=== PATIENT | male | born 1985 | race Two or more races ===

== ENCOUNTER 2023-10-28 21:14 | Emergency (ER) | payer MEDICAID, SELFPAY ==
--- NOTE | ~2023-10-28 | XR_ITS ---
EXAMINATION: XR ANKLE, LEFT CLINICAL INFORMATION: Left ankle pain. COMPARISON: None available. TECHNIQUE: 3 views of the left ankle. FINDINGS: There is lateral fibular plate and screws stabilizing old healed fracture. There is no acute fracture or dislocation seen. The ankle mortise and subtalar joints are normal. The soft tissues are normal. XR/XR ankle LT min 3V IMPRESSION: 1. No acute fracture or dislocation. 2. There is lateral fibular plate and screws stabilizing old healed fracture.
[2023-10-28 21:59] VITALS: BP 135/95; PULSE 83; RESP 14; TEMP 36.4; O2SAT 98; BMI 31.2
[2023-10-28 22:27] LABS: MANUAL DIFF FLAG NO
[2023-10-28 22:29] LABS: Basophils Absolute Auto 0.1 X10*3/uL (0.0-0.2); Basophils Percent Auto 0.7 % (0-2); Eosinophils Absolute Auto 0.1 X10*3/uL (0.0-0.4); Eosinophils Percent Auto 1.4 % (0-4); Hematocrit 44.7 % (42.0-52.0); Hemoglobin 15.8 g/dl (14.0-18.0); Imm Gran Abs Auto 0.01 X10*3/uL (0.00-0.03); Imm Gran Pct Auto 0.1 % (0.0-0.4); Lymphocytes Absolute Auto 3.7 X10*3/uL (1.2-4.9); Lymphocytes Percent Auto 45.2 % (20-40); Mean Corpuscular HGB Conc 35.3 g/dl (31.0-36.0); Mean Corpuscular Hemoglobin 29.9 pg (27.0-33.0); Mean Corpuscular Volume 84.7 fL (80.0-98.0); Mean Platelet Volume 11.2 fL (9.4-12.4); Monocytes Absolute Auto 0.6 X10*3/uL (0.1-1.2); Monocytes Percent Auto 7.6 % (2-11); Neutrophils Absolute Auto 3.7 x10*3/uL (2.0-8.3); Platelet Count 221 X10*3/uL (160-400); Red Blood Count 5.28 X10*6/uL (4.60-5.80); Red Cell Distribution Width 12.8 % (11.0-16.0); White Blood Count 8.1 X10*3/uL (4.8-10.8)
[2023-10-28 22:42] LABS: Alanine Aminotransferase 141 U/L (0-40); Albumin Level 4.6 g/dL (3.5-5.0); Alkaline Phosphatase 61 U/L (39-117); Anion Gap 11 (12-20); Aspartate Amino Transferase 43 U/L (5-37); Bilirubin Total 0.8 mg/dL (0.0-1.0); Blood Urea Nitrogen 15 mg/dL (9-16); Calcium 9.8 mg/dL (8.4-10.2); Carbon Dioxide 27 mmol/L (22-29); Chloride 109 mmol/L (96-108); Creatinine Clr Calc Pharmacy 104.3; Estimated Glomerular Filt Rate > 60; Glucose Random 77 mg/dL (60-115); Potassium 3.6 mmol/L (3.3-5.1); Sodium 143 mmol/L (135-145); Total Protein 7.8 g/dL (6.5-8.0)
[2023-10-29 01:44] VITALS: BP 134/88; PULSE 76; RESP 16; TEMP 36.6; O2SAT 96
--- NOTE | 2023-10-29 03:26 | PC.NURSE ---
approx 0300 this RN, Dr. Aldana and staff development manager in room for primary eval; nad. pt reported MEAD. upon returning to room pt had left prior to administering meds per oct. tried calling pt at cell phone in chart no answer [phone]. Dr. Aldana aware.
--- NOTE | 2023-10-29 03:30 | ED_ITS ---
HPI - Headache General Chief Complaint: Headache Stated Complaint: headache, L ankle (no injury) Time Seen by Provider: 10/29/23 02:35 Source: patient and insurance verification rep Mode of arrival: ambulatory History of Present Illness HPI Narrative: 38-year-old male who presents with 2 months of right-sided headache without blurred or double vision or loss of vision and denies any associated fever, chills and does not currently have a primary care doctor. He denies any associated nausea or vomiting. Patient also has complaints about twisting his left ankle 4 days ago. Related Data Allergies Allergy/AdvReac Type Severity Reaction Status Date / Time No Known Allergies Allergy Verified 10/28/23 21:58 Review of Systems 2 Review of Systems: Pertinent positives and negatives as stated in HPI [facility] Past Medical History Source: nursing notes reviewed Social History Social History Advance Directives: No Advance Directives Information Provided: No Physical Exam 2 Vital Signs: Vital Signs: Last Vital Signs Temp 98 F 10/29/23 01:44 Pulse 76 10/29/23 01:44 Resp 16 10/29/23 01:44 BP 134/88 10/29/23 01:44 Pulse Ox 96 10/29/23 01:44 O2 Del Method Room Air 10/29/23 01:44 BMI result Body Mass Index 31.2 VITAL SIGNS: Reviewed. GENERAL: Well developed, well nourished, in no acute distress. HEAD: Normocephalic/atraumatic EYES: PERRLA, EOMI EARS: Ext canals without abnormality, TMs non-bulging and non-erythematous NOSE: Nares patent bilateral OROPHARYNX: no oral lesions noted, posterior pharynx clear and non-erythematous without noted tonsillar enlargement/erythema/exudates NECK: Supple, no adenopathy LUNGS: Normal breath sounds. No adventitious sounds or accessory muscle use. SpO2<96> CARDIOVASCULAR: Regular rate and rhythm without noted murmurs ABDOMEN: Soft, non-tender, non-distended with bowel sounds. MUSCULOSKELETAL: No tenderness, deformities, or effusions noted on gross inspection. EXTREMITIES: No cyanosis, clubbing or edema. LEFT ANKLE: No obvious swelling/erythema/induration noted SKIN: Inspection of the skin reveals no rashes NEUROLOGIC: Alert and oriented x 4. Strength and sensation to light touch were grossly intact x 4, no facial asymmetry, no pronator drift, cranial nerves 2-12 are grossly intact.. Medications Administered Discontinued Medications Generic Name Dose Route Start Last Admin Trade Name Jorge L PRN Reason Stop Dose Admin Acetaminophen 975 mg 10/29/23 02:46 10/29/23 03:28 Acetaminophen 325 Mg Tablet PO 10/29/23 02:47 Not Given ONCE ONE Acetaminophen/Butalbital/Caffeine 1 tab 10/29/23 03:01 10/29/23 03:28 Butalb/Acetamin/Caff 50/325/40 Tablet PO 10/29/23 03:02 Not Given ONCE ONE Ibuprofen 400 mg 10/29/23 02:46 10/29/23 03:28 Ibuprofen 400 Mg Tablet PO 10/29/23 02:47 Not Given ONCE ONE Magnesium Oxide 400 mg 10/29/23 03:01 10/29/23 03:28 Magnesium Oxide 400 Mg Tablet PO 10/29/23 03:02 Not Given ONCE ONE Medical Decision Making Medical Decision Making [facility] Narrative: 38-year-old male with history and clinical presentation, DDX: Chronic headache, left ankle pain, no clinical suspicion for intracranial infection or eye pathology I reviewed all investigations in hematologic indices are negative for leukocytosis/left shift/anemia/thrombocytopenia. Chemistry indices negative for KEE or electrolyte derangements, there is a noted elevation of transaminases but patient has no abdominal pain and suspect this is likely secondary to fatty liver. Ankle x-ray negative for evidence to suggest fracture or dislocation. All results and findings discussed with patient at bedside and I informed him that we will get him started on a regimen medication available [id number] to help combat his headache and he will receive the 1st dose here in the emergency room. 0320: Was informed by nursing that patient is unable to be located and did not receive any medication. Differential Diagnosis Differential Diagnoses: The differential diagnosis associated with the presentation includes Please see the discussion above Admission/Observation Consideration of admission/observation: Escalation of care including admission/observation considered Please see the discussion above Lab Data [facility] Lab Attestation statement: I reviewed the patient's lab results. Please see the discussion above 10/28/23 22:22 10/28/23 22:22 Labs: Lab Results 10/28/23 Range/Units 22:22 WBC 8.1 (4.8-10.8) X10*3/uL RBC 5.28 (4.60-5.80) X10*6/uL Hgb 15.8 (14.0-18.0) g/dl Hct 44.7 (42.0-52.0) % MCV 84.7 (80.0-98.0) fL MCH 29.9 (27.0-33.0) pg MCHC 35.3 (31.0-36.0) g/dl RDW 12.8 (11.0-16.0) % Plt Count 221 (160-400) X10*3/uL MPV 11.2 (9.4-12.4) fL Immature Gran % (Auto) 0.1 (0.0-0.4) % Neut % (Auto) 45.0 (45-73) % Lymph % (Auto) 45.2 H (20-40) % [place] % (Auto) 7.6 (2-11) % Eos % (Auto) 1.4 (0-4) % Baso % (Auto) 0.7 (0-2) % Lymph # (Auto) 3.7 (1.2-4.9) X10*3/uL [place] # (Auto) 0.6 (0.1-1.2) X10*3/uL Eos # (Auto) 0.1 (0.0-0.4) X10*3/uL Baso # (Auto) 0.1 (0.0-0.2) X10*3/uL Abs Immat Gran (auto) 0.01 (0.00-0.03) X10*3/uL Absolute Neuts (auto) 3.7 (2.0-8.3) x10*3/uL Absolute Nucleated RBC 0.000 (0.0-0.012) X10*3/uL Nucleated RBC % (auto) 0.0 (0.0-0.2) /100WBC Sodium 143 (135-145) mmol/L Potassium 3.6 (3.3-5.1) mmol/L Chloride 109 H (96-108) mmol/L Carbon Dioxide 27 (22-29) mmol/L Anion Gap 11 L (12-20) BUN 15 (9-16) mg/dL Creatinine 1.13 (0.5-1.4) mg/dL Estim Creat Clear Calc 104.3 Estimated GFR > 60 Random Glucose 77 (60-115) mg/dL Calcium 9.8 (8.4-10.2) mg/dL Total Bilirubin 0.8 (0.0-1.0) mg/dL AST 43 H (5-37) U/L ALT 141 H (0-40) U/L Alkaline Phosphatase 61 (39-117) U/L Total Protein 7.8 (6.5-8.0) g/dL Albumin 4.6 (3.5-5.0) g/dL Radiology Impression Discussion of test interpretation with radiology: I have reviewed the radiologist's reading. Radiologist Impression: Please see the discussion above Discharge Plan Discharge Clinical Impression: Headache, Ankle pain Patient Disposition: Elopement Interventions: ED Discharge Assessment Last Done: 10/29/23 03:29 Discharge Date/Time: 10/29/23 03:29
== END 2023-10-29 03:29 | disposition left against medical advice (07) ==
PROVIDERS: Emergency Provider Student in an Organized Health Care Education/Training Program
DX: R51.9 Headache, unspecified (principal); M25.572 Pain in left ankle and joints of left foot; Z79.899 Other long term (current) drug therapy
CPT/HCPCS: 36415; 73610; 80053; 85025; 99283

== ENCOUNTER 2023-11-29 10:16 | Outpatient (REF) | payer MEDICAID, SELFPAY ==
--- NOTE | ~2023-11-29 | XR_ITS ---
EXAMINATION: XR SHOULDER, RIGHT CLINICAL INFORMATION: Right shoulder, acute pain of right anterior shoulder COMPARISON: None available. TECHNIQUE: AP external rotation, Grashey, scapular Y, and axillary views of the right shoulder. FINDINGS: The bones and soft tissues are normal. No fracture. Glenohumeral and acromioclavicular alignment is anatomic with normal joint space. Mild degenerative change of acromioclavicular joint. No abnormal soft tissue calcifications. XR/XR shoulder RT min 2V IMPRESSION: Mild degenerative change of the acromioclavicular joint.
--- NOTE | ~2023-11-29 | XR_ITS ---
EXAMINATION: XR ANKLE, LEFT CLINICAL INFORMATION: Left ankle, history of fracture of tibia, pain COMPARISON: 10/28/2023 TECHNIQUE: AP, lateral, and mortise views of the left ankle. FINDINGS: There is a lateral fibular plate and screws stabilizing old healed fracture. The hardware is intact. No acute fracture or dislocation. The ankle mortise and subtalar joints are normal. The soft tissues are normal. XR/XR ankle LT min 3V IMPRESSION: 1. No acute fracture or dislocation. 2. There is a lateral fibular plate and screws stabilizing old healed fracture.
[2023-11-29 12:38] LABS: Erythrocyte Sedimentation Rate 6 MM/HR (0-15)
[2023-11-29 12:40] LABS: Estimated Average Glucose 103 mg/dL; Hemoglobin A1c % 5.2 % (<6.0)
[2023-11-29 12:45] LABS: Alanine Aminotransferase 118 U/L (0-40); Albumin Level 4.3 g/dL (3.5-5.0); Alkaline Phosphatase 60 U/L (39-117); Anion Gap 13 (12-20); Aspartate Amino Transferase 38 U/L (5-37); Blood Urea Nitrogen 9 mg/dL (9-16); C Reactive Protein < 0.10 mg/dL (< or = 0.50); Calcium 9.3 mg/dL (8.4-10.2); Carbon Dioxide 24 mmol/L (22-29); Chloride 108 mmol/L (96-108); Cholesterol 246 mg/dL (<200); Estimated Glomerular Filt Rate > 60; Glucose Random 96 mg/dL (60-115); HDL Cholesterol 37 mg/dL (>40); LDL Cholesterol Calculated 170 mg/dL (<100); Potassium 3.9 mmol/L (3.3-5.1); Sodium 141 mmol/L (135-145); Total Protein 7.5 g/dL (6.5-8.0); Triglycerides 197 mg/dL (<150)
[2023-11-29 14:13] LABS: CT PCR NOT DETECTED (Not Detect.); NG PCR NOT DETECTED (Not Detect.)
[2023-11-30 04:15] LABS: HIV AB/AG Nonreactive (Nonreactive); HIV Num 1 0.05 S/CO (0.00-0.99); ~HepC Num1 0.08 S/CO (0.00-0.79); ~Hepatitis C Antibody Nonreactive (Nonreactive)
[2023-12-02 11:53] LABS: RPR Rapid Plasma Reagin NON-REACTIVE (NON-REACTIVE)
== END 2023-11-29 10:17 | disposition home or self-care (01) ==
LOC: HO.HHCL 10:16
PROVIDERS: Visit Provider General Practice
DX: Z00.00 Encounter for general adult medical examination without abnormal findings (principal); Z11.4 Encounter for screening for human immunodeficiency virus [HIV]; M25.511 Pain in right shoulder; Z87.81 Personal history of (healed) traumatic fracture
CPT/HCPCS: 0353U; 36415; 73030; 73610; 80053; 80061; 83036; 85652; 86140; 86592; 86803; 87389

== ENCOUNTER 2024-03-10 11:00 | Outpatient (REF) | payer MEDICAID, SELFPAY ==
[2024-03-10 13:25] LABS: Hematocrit 46.6 % (42.0-52.0); Hemoglobin 15.8 g/dl (14.0-18.0); Mean Corpuscular HGB Conc 33.9 g/dl (31.0-36.0); Mean Corpuscular Hemoglobin 29.9 pg (27.0-33.0); Mean Corpuscular Volume 88.3 fL (80.0-98.0); Mean Platelet Volume 11.1 fL (9.4-12.4); Platelet Count 221 X10*3/uL (160-400); Red Blood Count 5.28 X10*6/uL (4.60-5.80); White Blood Count 6.9 X10*3/uL (4.8-10.8)
[2024-03-10 13:31] LABS: Estimated Average Glucose 97 mg/dL
[2024-03-10 13:55] LABS: Alanine Aminotransferase 59 U/L (0-40); Albumin Level 4.4 g/dL (3.5-5.0); Alkaline Phosphatase 52 U/L (39-117); Anion Gap 13 (12-20); Aspartate Amino Transferase 27 U/L (5-37); Bilirubin Direct 0.2 mg/dL (0.0-0.5); Bilirubin Total 0.8 mg/dL (0.0-1.0); Blood Urea Nitrogen 9 mg/dL (9-16); Carbon Dioxide 26 mmol/L (22-29); Chloride 107 mmol/L (96-108); Cholesterol 248 mg/dL (<200); Estimated Glomerular Filt Rate > 60; Free T4 (Free Thyroxine) 1.11 ng/dL (0.71-1.85); Glucose Random 95 mg/dL (60-115); HDL Cholesterol 38 mg/dL (>40); LDL Cholesterol Calculated 158 mg/dL (<100); Sodium 142 mmol/L (135-145); Thyroid Stimulating Hormone 0.54 uIU/mL (0.32-4.0); Total Protein 7.4 g/dL (6.5-8.0); Triglycerides 262 mg/dL (<150); Vitamin D 25-OH Total 41.2 ng/mL (>30)
== END 2024-03-10 11:01 | disposition home or self-care (01) ==
LOC: HO.HHCL 11:00
PROVIDERS: Visit Provider Family Medicine
DX: R79.89 Other specified abnormal findings of blood chemistry (principal)
CPT/HCPCS: 36415; 72100; 73110; 73130; 80048; 80061; 80076; 82306; 83036; 84439; 84443; 85027

== ENCOUNTER 2024-03-10 11:14 | Outpatient (REF) | payer MEDICAID, SELFPAY ==
--- NOTE | ~2024-03-10 | XR_ITS ---
EXAMINATION: XR HAND, BILATERAL XR WRIST, BILATERAL CLINICAL INFORMATION: Bilateral hand and wrist pain COMPARISON: None available. TECHNIQUE: 3 views of both wrist 3 views of both hand FINDINGS: RIGHT: No acute visible fracture or dislocation. Joint spaces and alignment are maintained. Soft tissues are unremarkable. LEFT: No acute visible fracture or dislocation. Plate and screw fixation of the first metacarpal, grossly intact. Joint spaces and alignment are maintained. Radiopaque soft tissue densities in the region of the first webspace. XR/XR hand RT min 3V IMPRESSION: 1. No acute visible fracture or dislocation. 2. Plate and screw fixation of the left first metacarpal, grossly intact. 3. Radiopaque soft tissue densities in the region of the left first webspace.
--- NOTE | ~2024-03-10 | XR_ITS ---
EXAMINATION: XR HAND, BILATERAL XR WRIST, BILATERAL CLINICAL INFORMATION: Bilateral hand and wrist pain COMPARISON: None available. TECHNIQUE: 3 views of both wrist 3 views of both hand FINDINGS: RIGHT: No acute visible fracture or dislocation. Joint spaces and alignment are maintained. Soft tissues are unremarkable. LEFT: No acute visible fracture or dislocation. Plate and screw fixation of the first metacarpal, grossly intact. Joint spaces and alignment are maintained. Radiopaque soft tissue densities in the region of the first webspace. XR/XR hand LT min 3V IMPRESSION: 1. No acute visible fracture or dislocation. 2. Plate and screw fixation of the left first metacarpal, grossly intact. 3. Radiopaque soft tissue densities in the region of the left first webspace.
--- NOTE | ~2024-03-10 | XR_ITS ---
EXAMINATION: XR HAND, BILATERAL XR WRIST, BILATERAL CLINICAL INFORMATION: Bilateral hand and wrist pain COMPARISON: None available. TECHNIQUE: 3 views of both wrist 3 views of both hand FINDINGS: RIGHT: No acute visible fracture or dislocation. Joint spaces and alignment are maintained. Soft tissues are unremarkable. LEFT: No acute visible fracture or dislocation. Plate and screw fixation of the first metacarpal, grossly intact. Joint spaces and alignment are maintained. Radiopaque soft tissue densities in the region of the first webspace. XR/XR wrist RT min 3V IMPRESSION: 1. No acute visible fracture or dislocation. 2. Plate and screw fixation of the left first metacarpal, grossly intact. 3. Radiopaque soft tissue densities in the region of the left first webspace.
--- NOTE | ~2024-03-10 | XR_ITS ---
EXAMINATION: XR HAND, BILATERAL XR WRIST, BILATERAL CLINICAL INFORMATION: Bilateral hand and wrist pain COMPARISON: None available. TECHNIQUE: 3 views of both wrist 3 views of both hand FINDINGS: RIGHT: No acute visible fracture or dislocation. Joint spaces and alignment are maintained. Soft tissues are unremarkable. LEFT: No acute visible fracture or dislocation. Plate and screw fixation of the first metacarpal, grossly intact. Joint spaces and alignment are maintained. Radiopaque soft tissue densities in the region of the first webspace. XR/XR wrist LT min 3V IMPRESSION: 1. No acute visible fracture or dislocation. 2. Plate and screw fixation of the left first metacarpal, grossly intact. 3. Radiopaque soft tissue densities in the region of the left first webspace.
--- NOTE | ~2024-03-10 | XR_ITS ---
EXAMINATION: XR LUMBOSACRAL SPINE CLINICAL INFORMATION: Low back pain worsening COMPARISON: None available. TECHNIQUE: Three views of the lumbosacral spine. FINDINGS: 5 nonrib-bearing lumbar-type vertebral bodies. No acute visible fracture or dislocation. Vertebral maintained. Posterior elements are intact. Paraspinal soft tissues are unremarkable. Visualized bowel gas is unremarkable. XR/XR lumbar spine 2-3V IMPRESSION: No acute visible fracture or dislocation.
== END 2024-03-10 11:15 | disposition home or self-care (01) ==
LOC: HO.HHCX 11:14
PROVIDERS: Visit Provider Family Medicine
DX: M54.50 Low back pain, unspecified (principal); G89.29 Other chronic pain; M25.531 Pain in right wrist; M25.532 Pain in left wrist
CPT/HCPCS: 72100; 73110; 73130

== ENCOUNTER → 2024-03-12 08:43 | Outpatient (REF) | payer MEDICAID, SELFPAY | LOC: HO.SL 08:43 | PROVIDERS: PCP Family Medicine; Visit Provider Family Medicine | DX: G47.33 Obstructive sleep apnea (adult) (pediatric) (principal) | CPT/HCPCS: 95806 ==

== ENCOUNTER → 2024-03-12 19:00 | Outpatient (BNV) | payer MEDICAID, SELFPAY | PROVIDERS: PCP Family Medicine; Visit Provider Internal Medicine | DX: G47.33 Obstructive sleep apnea (adult) (pediatric) (principal) | CPT/HCPCS: 95806 ==

== ENCOUNTER 2024-03-31 09:39 | Outpatient (REF) | payer MEDICAID, SELFPAY ==
--- NOTE | 2024-03-31 | EMG_ITS ---
Bilateral median and ulnar motor and sensory studies were performed. Bilateral radial sensory studies were performed and paraspinal muscles were tested with a needle. Bilateral median and lateral antecubital brachial sensory studies were also performed. IMPRESSION: Mild to moderate bilateral median neuropathy across carpal tunnel. MD ERIK Sinha/JOHANN / [id number]
== END 2024-03-31 09:40 | disposition home or self-care (01) ==
LOC: HO.NEURO 09:39
PROVIDERS: PCP Family Medicine; Visit Provider Family Medicine
DX: M25.531 Pain in right wrist (principal); M25.532 Pain in left wrist; R20.0 Anesthesia of skin; R20.2 Paresthesia of skin
CPT/HCPCS: 95886; 95913

== ENCOUNTER 2024-06-15 09:01 | Outpatient (AMB) | payer MEDICAID, SELFPAY ==
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
[2024-06-15 09:08] VITALS: BMI 29.4
== END 2024-06-15 09:54 | disposition home or self-care (01) ==
PROVIDERS: PCP Family Medicine
DX: G56.03 Carpal tunnel syndrome, bilateral upper limbs (principal); Z97.8 Presence of other specified devices
CPT/HCPCS: 99204

== ENCOUNTER → 2024-06-15 09:01 | Outpatient (BNVA) | payer MEDICAID, SELFPAY | PROVIDERS: PCP Family Medicine | DX: G56.03 Carpal tunnel syndrome, bilateral upper limbs (principal); Z97.8 Presence of other specified devices | CPT/HCPCS: 99212 ==

== ENCOUNTER 2024-08-03 07:55 | Day surgery (SDC) | payer MEDICAID, SELFPAY ==
[2024-08-03 08:21] VITALS: BMI 30.1
[2024-08-03 08:27] VITALS: BP 125/80; PULSE 77; RESP 16; TEMP 36.6; O2SAT 97
--- NOTE | 2024-08-03 10:38 | MHC.SHP ---
Pre-Procedural Eval Section A - 24 Hr Update-Section A only Date of Service: 08/03/24 The patient is an INPATIENT: No Changes since office visit: No Cold of Flu in the past 2 weeks, No New Medical Problems, No Changes in Medication and No Patient answered all questions The patient has been examined within 24 hours of the surgical procedure. The History & Physical has been completed within 30 days and I have reviewed it.: Yes Section B - Complete if H&P > 30 days Chief Complaint: Carpal tunnel syndrome, right upper limb Allergies: Allergies Allergy/AdvReac Type Severity Reaction Status Date / Time No Known Allergies Allergy Verified 06/15/24 09:08 Plan Diagnosis/Plan: Unchanged I have reviewed the history and physical and performed a pertinent physical examination on my patient. No changes have occurred unless specified. Time Spent With Patient Time: Total time managing care of this patient today ____ minutes.
--- NOTE | 2024-08-03 10:39 | W.PM.OPN ---
Operative Note Operative Note Date of Service: 08/03/24 Narrative: Preop diagnosis: 1. Right Carpal tunnel syndrome Postop diagnosis: same Procedure: 1. Right Carpal tunnel release Surgeon: Ivy Parker MD Treatment Plant Operator: None Anesthesia: local block using 1% lidocaine with epinephrine Findings: Thickened transverse carpal ligament. EBL: Less than 5 mL Specimens: None Complications: None Disposition: Brought to recovery room in stable condition Plan: Follow-up for 10-14 days for wound check and suture removal Indications: The patient is 39 years old, with right carpal tunnel syndrome that has been unresponsive to nonoperative management. The risks and benefits of operative treatment including but not limited to risk of damage to blood vessels, nerves, tendons, infection, persistent pain, persistent symptoms, or possible need for additional surgery were discussed with the patient and the patient wishes to proceed with surgery. Procedure: Once consent was obtained a local block was performed using a combination of 1% lidocaine with epinephrine. The patient was then brought back to the operating suite and placed on the operative table in supine position. The right upper extremity was prepped and draped in a standard surgical fashion. Once assured that we had a good block, a 2.0 cm longitudinal incision was made centered over the carpal tunnel. The incision was made through the skin to the subcutaneous tissues using a #15 blade. Dissection was made down to the level of the transverse carpal ligament with care being taken to protect the palmar cutaneous nerve. Once the transverse carpal ligament was clearly visualized, a longitudinal incision was made in the transverse carpal ligament 1st using a #15 blade, then using tenotomy scissors under direct visualization. Care was taken to look for and protect the motor branch of the median nerve when seen in this area. Once satisfied with our carpal tunnel release the wound was copiously irrigated with normal saline and hemostasis was obtained with a brief period of local pressure. The skin edges were reapproximated with some 5.0 nylon suture material and a sterile dressing was applied. The patient appears to have tolerated the procedure well and with no complications. All digits were well vascularized at the conclusion of the case.
[2024-08-03 11:33] VITALS: BP 140/90; PULSE 70; RESP 16; O2SAT 97
--- NOTE | 2024-08-03 11:42 | PC.NURSE ---
PATIENT IS ONLY SUPPOSED TO GET VICODIN HIS PRESCRIPTION PER DR. DONATO. PATIENT AWARE.
== END 2024-08-03 11:48 | disposition home or self-care (01) ==
PROVIDERS: PCP Family Medicine; Visit Provider Orthopaedic Surgery
PROC: (CPT 64721; principal; 2024-08-03 09:40)
DX: G56.01 Carpal tunnel syndrome, right upper limb (principal); Z87.891 Personal history of nicotine dependence
CPT/HCPCS: 64721; J0171; J2003

== ENCOUNTER → 2024-08-03 07:55 | Outpatient (BNV) | payer MEDICAID, SELFPAY | PROVIDERS: PCP Family Medicine; Visit Provider Orthopaedic Surgery | DX: G56.01 Carpal tunnel syndrome, right upper limb (principal) | CPT/HCPCS: 64721 ==

== ENCOUNTER 2024-08-09 19:50 | Outpatient (REF) | payer MEDICAID, SELFPAY ==
--- NOTE | ~2024-08-09 | MR_ITS ---
EXAMINATION: MR SHOULDER WITHOUT CONTRAST RIGHT CLINICAL INFORMATION: Severe lateral pain with weakness. Pain that comes and goes for 4 months, ongoing getting arms, has no strength. Swelling, numbness. COMPARISON: XR right shoulder 11/29/2023. TECHNIQUE: MRI of the shoulder without contrast was performed on a high-field scanner. FINDINGS: ROTATOR CUFF: Mild supraspinatus tendinosis with articular surface fraying/partial tearing measuring up to 1.3 cm in ML dimension. No full-thickness rotator cuff tendon tear. No muscle atrophy or fatty infiltration. BICEPS: Intact. CORACOACROMIAL ARCH: The undersurface of the acromion is curved with no subacromial spur. Moderate acromioclavicular osteoarthritis. Trace fluid within the subacromial-subdeltoid bursa, consistent with minimal bursitis. LABRUM/CAPSULE: Linear fluid signal within the undersurface of the superior and posterosuperior labrum, consistent with nondisplaced undersurface tearing. Paralabral cyst extending into the glenoid notch measuring approximately 1.7 x 2.1 x 1.3 cm. Intact joint capsule. GLENOHUMERAL JOINT/MARROW: Intact articular cartilage. No marrow edema or evidence of acute osseous injury. No significant joint effusion. MR/MR shoulder RT wo con IMPRESSION: 1. Mild supraspinatus tendinosis with articular surface fraying/partial tearing measuring 1.3 cm in ML dimension. No full-thickness rotator cuff tendon tear. 2. Moderate acromioclavicular osteoarthritis. 3. Minimal subacromial-subdeltoid bursitis. 4. Nondisplaced undersurface tear of the superior and posterosuperior labrum with a paralabral cyst extending into the glenoid notch measuring up to 2.1 cm. Electronically signed by: Jaun Choe MD 08/11/2024 10:41 AM MARGARITA
== END 2024-08-09 19:51 | disposition home or self-care (01) ==
LOC: HO.MRI 19:50
PROVIDERS: PCP Family Medicine; Visit Provider Family Medicine
DX: M25.511 Pain in right shoulder (principal); G89.29 Other chronic pain
CPT/HCPCS: 73221

== ENCOUNTER 2024-08-17 08:31 | Outpatient (AMB) | payer MEDICAID, SELFPAY ==
--- NOTE | 2024-08-17 08:54 | A.OFFVIS_ITS ---
Vital Signs 08/17/24 09:01 Height 5 ft 10 in Weight 210 lb BMI 30.1 Handedness Right Intake Visit Reasons: PO-Rt CTR 08/03/24 Intake Note: Rigo is a 39 year old right hand dominant male who presents today post operatively s/p right carpal tunnel release DOS: 08/03/2024. Patient reports when he uses or moves his 3rd, 4th and 5th digits of the right hand he gets pain in the muscles of his palm. He states he is no longer having numbness and tingling. Denies drainage. Wealth Management Consultant Required: Yes Wealth Management Consultant Language: Cosmetics Machine Operator Name: [id number] Allergies No Known Allergies Allergy (Verified 08/17/24 09:00) HPI HPI PO-Rt CTR 08/03/24: Details: Patient is a 39-year-old male who presents for postoperative evaluation status post right carpal tunnel release, DOS 08/03/2024. Today, the patient reports that he is feeling very well, only experiences occasional discomfort in the ulnar part of his hand when he attempts to make a tight closed fist patient shubham es any ongoing numbness or tingling in the right upper extremity. Patient expresses he would like to get signed up for left-sided surgery at this time. No other acute complaints or concerns at this time. PENDING SALE TO [facility] Surgical History (Updated 08/03/24 @ 08:20 by Prisca Amaya RN) Hx of tonsillectomy History of surgery Social History Alcohol intake: former Patient Tobacco Use Status: Former Tobacco user Current occupational status: disabled Current occupation: right hand dominant Review of Systems Const All systems reviewed & are unremarkable except as noted in HPI and below Physical Exam Vital Signs: BMI result Body Mass Index 30.1 Extrem Other: Neuro: Normal sensation of the tips of all digits of bilateral hands in the office today No thenar or intrinsic wasting. Good APB muscle firing and good finger cross. Vascular: Capillary refill brisk. ROM: Patient can make a fist and extend all their digits. Skin: Well approximated and well healing incision site noted on the volar aspect of the patient's right wrist General: No ecchymosis. No erythema or evidence of infection. Results Reviewed Results Reviewed: IMPRESSION: Mild to moderate bilateral median neuropathy across carpal tunnel. Zulema Christopher MD 03/31/2024 Assessment & Plan Assessment & Plan (1) Carpal tunnel syndrome, bilateral: Code(s): G56.03 - Carpal tunnel syndrome, bilateral upper limbs Category: Medical Plan 1. Carpal tunnel syndrome, right, status post carpal tunnel release DOS 08/03/2024 Patient appears to be recovering well postoperatively Patient is educated about the typical recovery course At this time, patient was informed that he will require no further acute follow- up with us for his right carpal tunnel release, as he appears to be recovering very well Patient was amenable to this plan 2. Carpal tunnel syndrome, left Symptoms intermittent, daily, worse at night I educated the patient about the condition. I discussed both operative and nonoperative treatment options. The patient would like to proceed with surgery. The risks and benefits of operative treatment were discussed with the patient and the patient wishes to proceed with surgery. These risks include, but are not limited to, risk of damage to blood vessels, nerves, tendons, infection, recurrence, incomplete relief of preoperative symptoms, persistent pain, possible need for further surgery, and the risks associated with regional blocks and/or anesthesia. Plan is to take the patient to the operating room at some point in the next few weeks for the following procedures: 1. Left carpal tunnel release under local anesthesia All of the preoperative paperwork including the consent was discussed today. All of the patient's questions were answered in the clinic today. The patient understands that they will be in contact with our certified surgical technician to discuss scheduling their procedure. Patient denies diabetes, blood thinners, asthma, heart issues, lung issues, kidney issues, or current smoking. Coding Level of Care Code Est Pt Level 4 (22442) Diagnoses Carpal tunnel syndrome, bilateral G56.03
[2024-08-17 09:01] VITALS: BMI 30.1
== END 2024-08-17 09:23 | disposition home or self-care (01) ==
PROVIDERS: PCP Family Medicine
DX: G56.03 Carpal tunnel syndrome, bilateral upper limbs (principal)
CPT/HCPCS: 99214

== ENCOUNTER → 2024-08-17 08:31 | Outpatient (BNVA) | payer MEDICAID, SELFPAY | PROVIDERS: PCP Family Medicine | DX: G56.03 Carpal tunnel syndrome, bilateral upper limbs (principal) | CPT/HCPCS: 99212 ==

== ENCOUNTER → 2024-08-20 20:30 | Outpatient (REF) | payer MEDICAID, SELFPAY | LOC: HO.SL 20:30 | PROVIDERS: PCP Family Medicine; Visit Provider Family Medicine | DX: Z13.89 Encounter for screening for other disorder (principal) ==

== ENCOUNTER 2024-08-25 08:43 | Outpatient (AMB) | payer MEDICAID, SELFPAY ==
--- NOTE | 2024-08-25 08:47 | MHC.OFFVIS ---
Vital Signs 08/25/24 08:51 Height 5 ft 10 in Weight 210 lb BMI 30.1 Handedness Right Intake Visit Reasons: New Prob - Right Shoulder Pain Intake Note: Rigo is a 39 year old right hand dominant male who presents today for a new problem visit with complaints of right shoulder pain. MRI was done 08/09/24. No hx of injury. Patient reports ongoing pain for more than 6 months. He states that he had this pain before but it was constant like it is now. Pain is more focused on the lateral aspect of the shoulder per patient. Patient has tried and failed Tylenol and Ibuprofen. Rehabilitation Therapist Services: Rehabilitation Therapist Present (Carmelita ([id number])) Allergies No Known Allergies Allergy (Verified 08/25/24 08:50) HPI HPI New Prob - Right Shoulder Pain: Details: Mr. Maynor Morin is a 39-year-old right-hand dominant male who presents to the office today for evaluation of right shoulder pain. He reports that his pain began in November with a gradual onset. He denies any injury or trauma to the shoulder. Over the past 6 months he has noticed that his pain has become more constant. He points to the lateral aspect of the shoulder to indicate his location of pain. He reports that he has had an x-ray as well as an MRI that was done on 08/09/2024. He has tried and failed Tylenol and ibuprofen. 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 External rotation to end range. Negative empty can. Negative drop arm. Pain with cross-body reach. NVI. Office Procedures AMB Joint Injection/Aspiration Joint Injection/Aspiration Primary Site: right shoulder Prep: site was prepped using aseptic technique, ethochloride spray was applied and injection warnings given Injected: 80 mg of, DepoMedrol, with 8 mL of (2% plain lido ) and in the subcromial space Approach Used: posterolateral Procedure: The patient tolerated the procedure well, but had some pain with the injection and there was some relief with the local anesthesia Coding 38420 - Large joint Procedure code (CPT) selection complete Assessment & Plan Assessment & Plan (1) Tendinitis of right rotator cuff: Code(s): M75.81 - Other shoulder lesions, right shoulder Category: Medical (2) Painful arc syndrome of right shoulder: Code(s): M75.101 - Unspecified rotator cuff tear or rupture of right shoulder, not specified as traumatic Category: Medical Plan Mr. Maynor Morin is a 39-year-old right-hand dominant male who presents to the office today for evaluation of right shoulder pain. He reports that his pain began in November with a gradual onset. He denies any injury or trauma to the shoulder. Over the past 6 months he has noticed that his pain has become more constant. He points to the lateral aspect of the shoulder to indicate his location of pain. He reports that he has had an x-ray as well as an MRI that was done on 08/09/2024. He has tried and failed Tylenol and ibuprofen. The patient was offered a?cortisone?injection in the?right shoulder with 80 mg of DepoMedrol. The patient was explained the risks, benefits, and alternatives to receiving this injection. After receiving consent for the injection, the patient had the procedure done while in the office today. The patient tolerated the procedure well with no complications.? I also recommended the patient attend physical therapy. The patient is agreement with this and a physical therapy order has been placed. Patient will follow-up in 6 weeks, sooner if needed. X-rays of the left shoulder obtained on 11/29/2023 are negative for any acute fracture or dislocation. MRI obtained on 08/09/2024: 1. Mild supraspinatus tendinosis with articular surface fraying/partial tearing measuring 1.3 cm in ML dimension. No full-thickness rotator cuff tendon tear. 2. Moderate acromioclavicular osteoarthritis. 3. Minimal subacromial-subdeltoid bursitis. 4. Nondisplaced undersurface tear of the superior and posterosuperior labrum with a paralabral cyst extending into the glenoid notch measuring up to 2.1 cm. Coding Level of Care Code New Pt Level 4 (55189) Diagnoses Tendinitis of right rotator cuff M75.81 Painful arc syndrome of right shoulder M75.101 CPT Codes Coding - 49110 Large joint: 83473 - Large joint ([id number])
[2024-08-25 08:51] VITALS: BMI 30.1
== END 2024-08-25 09:22 | disposition home or self-care (01) ==
PROVIDERS: PCP Family Medicine; Visit Provider Physician Assistant
DX: M75.81 Other shoulder lesions, right shoulder (principal); M75.101 Unspecified rotator cuff tear or rupture of right shoulder, not specified as traumatic
CPT/HCPCS: 20610; 99214

== ENCOUNTER → 2024-08-25 08:43 | Outpatient (BNVA) | payer MEDICAID, SELFPAY | PROVIDERS: PCP Family Medicine; Visit Provider Physician Assistant | DX: M75.81 Other shoulder lesions, right shoulder (principal); M75.101 Unspecified rotator cuff tear or rupture of right shoulder, not specified as traumatic | CPT/HCPCS: 20610; 99212; J1010; J2003 ==

== ENCOUNTER 2024-09-01 07:21 | Outpatient (REF) | payer MEDICAID, SELFPAY ==
--- NOTE | ~2024-09-01 | US_ITS ---
CLINICAL HISTORY: elevated LFTs US abdomen complete Comparison: None Findings: The visualized pancreas is normal. The aorta and inferior vena cava are normal caliber. The liver is normal in size with diffuse increase of echogenicity. There is no intrahepatic bile duct dilatation. The common duct is 3.0 mm in diameter. There are multiple small non mobile echogenicity of the gallbladder with the largest 1 measuring 3 mm. The main portal vein is antegrade. The right kidney is 11 cm in length. The left kidney is 11 cm in length. The spleen is normal. No ascites. IMPRESSION: Diffuse increase of echogenicity of the liver favored to represent hepatic steatosis. Possible multiple polyps of the gallbladder. This document has been electronically signed by: Sandhya Perez MD on 09/02/2024 14:52:50
== END 2024-09-01 07:22 | disposition home or self-care (01) ==
LOC: HO.US 07:21
PROVIDERS: PCP Family Medicine; Visit Provider Family Medicine
DX: R79.89 Other specified abnormal findings of blood chemistry (principal)
CPT/HCPCS: 76700

== ENCOUNTER → 2024-09-01 07:23 | Outpatient (BNV) | payer MEDICAID, SELFPAY | PROVIDERS: PCP Family Medicine; Visit Provider Nuclear Medicine | DX: R79.89 Other specified abnormal findings of blood chemistry (principal) | CPT/HCPCS: 76700 ==

== ENCOUNTER 2024-09-09 08:55 | Outpatient (RCR) | payer MEDICAID, SELFPAY | END 2024-10-14 11:27 | disposition home or self-care (01) | LOC: HO.PT 08:55 | PROVIDERS: PCP Family Medicine; Visit Provider Physician Assistant | DX: M75.81 Other shoulder lesions, right shoulder (principal); M75.101 Unspecified rotator cuff tear or rupture of right shoulder, not specified as traumatic | CPT/HCPCS: 97110; 97161 ==

== ENCOUNTER 2024-09-16 10:11 | Outpatient (REF) | payer MEDICAID, SELFPAY ==
--- NOTE | ~2024-09-16 | XR_ITS ---
EXAMINATION: XR CERVICAL SPINE CLINICAL INFORMATION: neck pain COMPARISON: None available. TECHNIQUE: 5 views of the cervical spine, inclusive of flexion and extension views, were obtained. FINDINGS: There is normal cervical lordosis. The vertebral heights and alignment is normal. Mild loss of C7-T1 disc height. Rest the disc heights are normal. The neural foramina are mildly narrowed bilaterally at C5-6 and on the left at C4-5 disc level from uncovertebral hypertrophic changes. No visible acute fracture, dislocation or lytic process seen. The paravertebral soft tissues are normal. XR/XR cervical spine 4V IMPRESSION: No acute fracture or dislocation. Mild bilateral narrowing of C5-6 and left C4-5 neural foramina from uncovertebral hypertrophic changes. Mild degenerative disc changes C7-T1 disc level. Electronically signed by: Clyde Franco MD 09/16/2024 11:00 AM MARGARITA
--- OUTSIDE RECORDS SUMMARY | 2024-09-16 12:10 | XMS_ITS | Clinical Summary ---
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 LDL: 130-159 mg/dLHigh LDL: 160-189 mg/dLVery High LDL: greater than or equal to 190 mg/dL HDL Cholesterol 38(L) >40 mg/dL [facility] Comment:Desirable HDL: great er than 40 mg/dL Note: This HDL assay may give artificially low results in patients with liver disease. Blood Venous blood specimen / Unknown 03/10/2024 11:03 AM EDT 03/10/2024 1:04 PM EDT us Malina Nevarez DO LAB BLOOD ORDERABLES Final R esult Performing Organization Address [facility] Co de Phone Number [facility] [address] [place] [phone] * Hepatitis C Antibody with Reflex to HCV, RNA, Quantitative, Real-Time PCR (11/29/2023 10:27 AM EDT) Hepatitis C Antibody Nonreactive Nonreactive [facility] Comment:Antibodies to HCV no t detected; does not exclude early acuteHCV infection. Blood Venous blood specimen / Unknown 11/29/2023 10:27 AM EDT 11/29/2023 11:55 AM EDT us Leelee Francisco MD LAB BLOOD ORDERABLES Final Res ult Performing Organization Address [facility] de Phone Number [facility] [address] [place] [phone] * HIV-1/2 Antigen and Antibodies, Fourth Generation, with Reflexes (11/29/2023 10:27 AM EDT) HIV AB/AG Nonreactive Nonreactive [facility] Comment:HIV-1 p24 Ag and/or HIV-1/HIV-2 Ab not detected.A test result that is nonreactive does not exclude thepossibility of exposure to or infection with HIV-1 and/orHIV-2. Nonreactive results in this assay for individualswith prior exposure to HIV-1 and/or HIV-2 may be due toantigen and antibody levels that are below the limit ofdetection of this assay.The [employer] HIV Ag/Ab Combo assay result andsupplemental assay results should be interpreted inconjunction with the patient's clinical presentation,history and other laboratory results. If the results areinconsistent with clinical evidence, additional testing issuggested to confirm the result. Blood Venous blood specimen / Unknown 11/29/2023 10:27 AM EDT 11/29/2023 11:55 AM EDT us Leelee Francisco MD LAB BLOOD ORDERABLES Final Res ult [facility] [address] [place] [phone] from Last 3 Months or Most Recently Relevant to Health Maintenance Insurance [facility] C3 HSN FULL Care Teams Planishing Hammer Operator Relationship Specialty Start Date End Date Malina Nevarez DO [address] [place] [phone] PCP - General Family Medicine 02/17/24
--- OUTSIDE RECORDS SUMMARY | 2024-09-16 12:10 | XMS_ITS | Encounter Summary ---
Author Organization [employer] Address [address] [facility] 7t [place] [address] Care Team Providers Care Clip On Sunglasses Inspector Name Role Phone Malina Nevarez DO Primary Care Provider + [phone] Leelee Francisco MD Primary Care Provider [phone] Malina Nevarez DO Primary Care Provider + [phone] Reason for Visit * Reason Onset Date Comments New Patient 04/18/2023 Encounter Details Date Type Department Care Team (Late st Contact Info) Description 04/18/2023 Telephone [facility] [address] [place], [place] [phone] Bobby Ortega MD [address] [place], [place] [phone] New Patient Social History Tobacco Use Types Packs/Day Years Used Date Smoking Tobacco: Never Assessed Sex and Gender Information Value Date Recorded Sex Assigned at Male 04/18/2023 5:00 PM EDT Legal Sex Male 4:59 PM EDT Gender Identity Male 04/18/2023 5:00 PM EDT Sexual Orientation Don't know 04/18/2023 5: 00 PM EDT documented as of this encounter Miscellaneous Notes * Telephone Encounter - Yarely Alcaraz - 04/18/2023 5:03 PM EDT Pt has been transfer over to wait list for RESIDENCE DIRECTOR. EFFECTIVE SINCE 02/15/2023 documented in this encounter Plan of Treatment Not on file documented as of this encounter Visit Diagnoses Not on filedocumented in this encounter Care Teams Clip On Sunglasses Inspector Relationship Specialty Start Date End Date Malina Nevarez DO [address] [place] [address] PCP - General Family Medicine 06/05/23 07/28/23 Leelee Francisco MD [address] [place] [address] PCP - General Family Medicine 11/29/23 02/16/24 Malina Nevarez DO [address] [place] [address] PCP - General Family Medicine 02/17/24 documented as of this encounter
--- OUTSIDE RECORDS SUMMARY | 2024-09-16 12:10 | XMS_ITS | Encounter Summary ---
Author Organization [facility] [employer] Address [address] [facility] [address] [place] [address] Care Team Providers Care Provider Service Representative Name Role Phone DeidraMalina ayon Primary Care Provider Encounter Details Date Type Department Care Team (Latest Contact Info) Description 09/16/2024 Travel Social History Tobacco Use Types Packs/Day Years Used Date Smoking Tobacco: Former Cigarettes Passive Smoke Exposure: Past Smokeless Tobacco: Never Depression Answer Date Recorded Patient Health Questionnaire-9 Score 18 08/05/2024 Patient Health Questionnaire-9 Score 18 08/05/2024 Last PHQ-9: Questionnaire Data Not on file 1 10/06/2023 Housing Stability Answer Date Recorded What is your housing situation today? I have andrez ginette 11/29/[address] you li [...] PM EDT documented as of this encounter Plan of Treatment Not on file documented as of this encounter Visit Diagnoses Not on filedocumented in this encounter Additional Health Concerns Assessment Noted Time PHQ-9 Depression Total Score: 18 08/05/ 024 10:07 AM EST documented as of this encounter Care Teams Provider Service Representative Relationship Specialty Start Date End Date Malina Nevarez DO [address] [place] [phone] PCP - General Family Medicine 02/17/24 documented as of this encounter
--- OUTSIDE RECORDS SUMMARY | 2024-09-16 12:10 | XMS_ITS | Encounter Summary ---
Author Organization [employer] Address [address] [facility] [address] [place] [address] Care Team Providers Care Skin Care Specialist Name Role Phone GeriMalina Primary Care Provider [phone] Reason for Visit * Reason Onset Date Comments Results 08/21/2024 Encounter Details Date Type Department Care Team ([facility] st Contact Info) Description 08/21/2024 Telephone [facility] [address] [place], [place] [phone] Frances Cha, RN [address] [place], [place] [phone] Results Social History Tobacco Use Types Packs/Day Years Used Date Smoking Tobacco: Never Smokeless Tobacco: Never Depression Answer Date Recorded [...] encounter Miscellaneous Notes * Telephone Encounter - Frances Cha RN - 08/21/2024 12:48 PM EST PCP reviewed shoulder MRI which returned showing Mild supraspinatus tendinosis with articular surface fraying/partial tearing measuring 1.3 cm in ML dimension and a Nondisplaced undersurface tear of the superior andposterosuperior labrum with a paralabral cyst extending into the glenoid notch measuring up to 2.1 cm . Patient reported to PCP he has an upcoming ortho appointment and ortho provider requested the MRI to be ordered. Patient should f/u with ortho. TC placed to patient [phone] to discuss above message. Patient did not answer, RN left requesting CB to red team nurses. TC placed to patient [phone] via [employer] ([employer] #[id number]) in regards to above message. Patient verbalized understanding and reports he has an ortho appointment on 08/25/24 at 9am at [facility] ([facility] Patient reports he will obtain the MRI CD and results from [facility] prior to ortho appointment. Patient did not have any further questions. Patient to f/u PRN. documented in this encounter Plan of Treatment Not on file documented as of this encounter Visit Diagnoses Not on filedocumented in this encounter Additional Health Concerns Assessment Noted Time PHQ-9 Depression Total Score: 18 024 10:07 AM EST documented as of this encounter Care Teams Skin Care Specialist Relationship Specialty Start Date End Date Malina Nevarez DO [address] [place] [phone] PCP - General Family Medicine 02/17/24 documented as of this encounter
--- OUTSIDE RECORDS SUMMARY | 2024-09-16 12:10 | XMS_ITS | Encounter Summary ---
Author Organization [employer] Address [address] [facility] [facility] [address] 7[address] [place] [address] Care Team Providers Care Validation Scientist Name Role Phone DeidraMalina ayon Primary Care Provider [phone] Reason for Visit * Reason Comments Neck Pain Encounter Details Date Type Department Care Team (Late st Contact Info) Description 09/16/2024 9:15 AM EST Office Visit [facility] [address] [place], [place] [phone] Ayesha Aleman MD [address] [place], [place] [phone] Cervical paraspinal muscle spasm (Primary Dx) Social History Tobacco Use Types Packs/Day Years [...] PM EDT documented as of this encounter Last Filed Vital Signs Vital Sign Reading Time Taken Comments Blood Pressure 130/70 09/16/2024 9:01 AM EST Pulse 72 09/16/2024 9:01 AM EST Temperature 36.6 ??C (97.9 ??F) 09/16/2024 9:01 AM ES T Respiratory Rate 17 09/16/2024 9:01 AM EST Oxygen Saturation - - Inhaled Oxygen Concentration - - Weight 94.4 kg (208 lb 2 oz) 09/16/2024 9:01 AM EST Height 177.8 cm (5' 10 ) 09/16/2024 9:01 AM EST Body Mass Index 29.86 09/16/2024 9:01 AM EST documented in this encounter Miscellaneous Notes * Patient Education Note - Ayesha Aleman MD - 09/16/2024 2:21 PM EST Images from the original note were not included. Patient Education Table of Contents Rehabilitaci?n de distensi?n y esguince cervical (Cervical Strain and Sprain Rehab) To view videos and all your education online visit, [email or web address] or scan this QR code with your smartphone. Access to this content will in one year. Rehabilitaci?n de distensi?n y esguince cervical Cervical Strain and Sprain Rehab Pregunte al m?dico qu?? ejercicios son seguros para usted. Indu los ejercicios exactamente augustina se lo haya indicado el m?dico y grad?elos auugstina se lo hayan indicado. Es normal sentir un leve estiramiento, tironeo, opresi?n o malestar al hacer estos ejercicios. Det?ngase de inmediato si siente un dolor repentino o el dolor empeora. No comience a hacer estos ejercicios hasta que se lo indique el m?dico. Ejercicios de elongaci?n y amplitud de movimiento Inclinaci?n cervical hacia un lado 1. Si?ntese en rohini silla estable o p?ngase de pie y mantenga rohini buena postura. Sin float remover los hombros, incline lentamente el lado liane/derecho de la neyda y lleve la oreja hacia el hombro hasta sentir un estiramiento en los m?sculos del lolis en el lado opuesto. Mantenga la mirada al frente. Mantenga esta posici?n meghan segundos. Repita el ejercicio con el otro lado del lolis. Repita veces. Realice jaimie ejercicio veces al d?a. Rotaci?n cervical 1. Si?ntese en rohini silla estable o p?ngase de pie y mantenga rohini buena postura. Lentamente, gire la neyda hacia un lado, augustina si quisiera mirar por encima del hombro liane/derecho. Mantenga la mirada paralela al suelo. Det?ngase cuando sienta un estiramiento en el costado y en la parte de atr?s del lolis. Mantenga esta posici?n meghan segundos. Para repetir el ejercicio, gire hacia el otro lado. Repita veces. Realice jaimie ejercicio veces al d?a. Extensi?n tor?cica y estiramiento pectoral 1. Use rohini toalla o rohini manta louise?a para armar un rollo de 4?pulgadas (10?cm) de di?metro. Acu?stese boca arriba sobre rohini superficie firme. Coloque la toalla en la parte media de la espalda, de manera transversal a la columna vertebral. Nodebe estar debajo de los om?platos. Coloque las apolonia detr?s de la neyda y deje caer los codos hacia los lados. Mantenga esta posici?n meghan segundos. Repita veces. Realice jaimie ejercicio veces al d?a. Ejercicios de fortalecimiento Flexi?n cervical superior 1. Acu?stese boca arriba con rohini almohada neptali detr?s de la neyda o rohini toalla louise?a enrollada debajo del lolis. Suavemente, hunda el ment?n en el pecho y lleve la neyda hacia abajo para mirar en direcci?n a lospies. No levante la neyda de la almohada. Mantenga esta posici?n meghan segundos. Afloje lentamente la tensi?n. Relaje los m?sculos por completo antes de repetir el ejercicio. Repita veces. Realice jaimie ejercicio veces al d?a. Extensi?n cervical 1. P?rese de espaldas a rohini pared, a rohini distancia aproximada de 6?pulgadas (15?cm) de la pared. Coloque un objeto blando, de unas 6 a 8?pulgadas (15 a 20?cm) de di?metro, entre la nuca y la pared. Puede ser rohini almohada louise?a, rohini pelota o rohiin toalla doblada. Incline suavemente la neyda hacia atr?s y ejerza presi?n sobre el objeto blando. Mantenga relajadas la carole?bula y la frente. Mantenga esta posici?n meghan segundos. Afloje lentamente la tensi?n. Relaje los m?sculos por completo antes de repetir el ejercicio. Repita veces. Realice jaimie ejercicio veces al d?a. Postura y mec?kristopher corporal La mec?kristopher corporal se refiere a los movimientos y a las posiciones del cuerpo mientras realiza las actividades diarias. La postura es rohini parte de la mec?kristopher corporal. La buena postura y la mec?kristopher corporal saludable pueden ayudar a aliviar el estr?s en las articulaciones y los tejidos del cuerpo. La buena postura significa que la columna mantiene lawton posici?n natural de curvatura en forma de S (la columna est?? en rohini posici?n neutral), los hombros van un poco hacia atr?s y la neyda no se inclina hacia adelante. A continuaci?n, se incluyen pautas generales para mejorar la postura y la mec?kristopher corporal en las actividades diarias. Sentado Cuando est?? sentado, mantenga la columna en posici?n neutral y deje los pies apoyados en el suelo.Use un apoyapi?s, si es necesario, y mantenga los muslos paralelos al suelo. Evite redondear los hombros. Evite inclinar la neyda hacia adelante. Cuando trabaje en un escritorio o con rohini computadora, el escritorio debe estar a rohini altura en la que las apolonia est?n un poco m?s abajo que los codos. Deslice la silla debajo del escritorio, de modode estar lo suficientemente cerca augustina para mantener rohini buena postura. Cuando trabaje con rohini computadora, coloque el monitor a rohini altura que le permita mirar derecho hacia adelante, sin tener que inclinar la neyda hacia adelante o hacia atr?s. De pie Cuando est?? de pie, mantenga la columna en posici?n neutral y los pies separados aproximadamente al ancho de caderas. Mantenga las rodillas ligeramente flexionadas. Las orejas, los hombros y las caderas deben estar alineados. Cuando realice rohini tarea en la que deba estar de pie en el mismo sitio meghan mucho tiempo, coloque un pie en un objeto estable de 2 a 4?pulgadas (5?a 10?cm) de alto, augustina un taburete. Raysal ayuda a que la columna mantenga rohini posici?n neutral. Reposo Al descansar o estar acostado, evite las posiciones que le causen m?s dolor. Intente sostener el lolis en rohini posici?n neutral. Puede usar rohini almohada arthur?brandon o rohini toalla louise?a enrollada. La almohada debe sostenerle el lolis, [place] no empujarlo. Esta informaci?n no tiene augustina fin reemplazar el consejo del m?dico. Aseg?rese de hacerle al m?dicocualquier pregunta que tenga. Document Released: 2007-05-22 Document Updated: 2023-03-22 Document Reviewed: 2023-03-22 Elsevier Patient Education ? 2023 [employer] * Assessment & Plan Note - Ayesha Aleman MD - 09/16/2024 9:32 AM EST Associated Problem(s): Cervical paraspinal muscle spasm Advised re applying heat to affected area, use diclofenac gel and do some stretching exercises. Rx Meloxicam daily x 5 d then prn + Tylenol prn breakthrough pain Use flexeril at bedtime x 1w Toradol 30mg IM today. FU w PCP if sxs are not improved, may need PT documented in this encounter Plan of Treatment Not on file documented as of this encounter Procedures Procedure Name Priority Date/Time Associated Diagnosis Comments XR CERVICAL SPINE 4V Routine 09/16/2024 10:12 AM EST Cervical paraspinal muscle spasm documented in this encounter Results * XR CERVICAL SPINE 4V (09/16/2024 10:12 AM EST) Anatomical Region Laterality Modality Abdomen Radiographic Merry ging 09/16/2024 10:1 2 AM EST Narrative 09/16/2024 11:02 AM EST ?[facility] ?[address] ?[place] [address] ?XRay Report ? Signed ? Patient: Rigo Hamm ?MR#: [id number] ?? [id number] ? : 1985 ?Acct:[id number] ? Age/Sex: 39 / M ?ADM Date: 01/29/25 ? Loc: HO.HHCX ? Attending Dr: Ayesha Aleman MD ? Ordering Physician: Ayesha Aleman MD ?? Date of Service: 09/16/24 ?? Procedure(s): XR cervical spine 4V ?? Accession Number(s): [id number] ? cc: Ayesha Aleman MD ? EXAMINATION: [...] disc level. ? Electronically signed by: ??Clyde Franco MD ??09/16/2024 11:00 AM EST RP ? Dictated By: ?Clyde Franco MD ? Signed By: ?<Electronically signed by Clyde Franco MD in OV> ?09/16/24 1100 ? DD/ 1012 ? TD/TT: 09/16/24 1040 ? Senior Quality Assurance Specialist: MSM ? Procedure Note [place], Image - 09/16/[address] [address] XRay Report Signed Patient: Rigo HammMR#: [id number] : 1985Acct:[id number] Age/Sex: 39 / MADM Date: 09/16/24 Loc: HO.HHCX Attending Dr: Ayesha Aleman MD Ordering Physician: Ayesha Aleman MD Date of Service: 09/16/24 Procedure(s): XR cervical spine 4V Accession Number(s): [id number] cc: Ayesha Aleman MD EXAMINATION: XR CERVICAL [...] Clyde Franco MD 09/16/2024 11:00 AM EST RP Dictated By: Clyde Franco MD Signed By: <Electronically signed by Clyde Franco MD in OV> 09/16/24 1100 DD/ 1012 TD/TT: 09/16/24 1040 Senior Quality Assurance Specialist: MATTEO Ayesha Aleman MD IMG XR PROCEDURES Edited Result - Final documented in this encounter Visit Diagnoses Diagnosis Cervical paraspinal muscle spasm- Primary Spasm of muscle documented in this encounter Administered Medications Inactive Administered Medications - up to 3 most recent administrations Medication Order MAR Action Action Date Dose Rate Site ketorolac (Toradol) injection 30 mg 30 mg, Intramuscular, Once, On Sat09/16/24 at 0930, For 1 doseIndications:Cervical paraspinal muscle spasm Given 09/16/2024 9:30 AM EST 30 mg Left Deltoid documented in this encounter Additional Health Concerns Assessment Noted Time PHQ-9 Depression Total Score: 18 1218/2 024 10:07 AM EST documented as of this encounter Care Teams Validation Scientist Relationship Specialty Start Date End Date Malina Nevarez DO [address] [place] [address] PCP - General Family Medicine 02/17/24 documented as of this encounter
--- OUTSIDE RECORDS SUMMARY | 2024-09-16 12:10 | XMS_ITS | Encounter Summary ---
Author Organization [employer] Address [address] [address] 7t [place] [address] Care Team Providers Care Material Control Specialist Name Role Phone Malina Nevarez DO Primary Care Provider Reason for Visit * Reason Comments Med Refill Encounter Details Date Type Department Care Team ([facility] st Contact Info) Description 09/03/2024 Refill [facility] [address] [place], [place] [phone] Malina Nevarez DO [address] [place], [place] [phone] Social History Tobacco Use Types Packs/Day Years [...] documented as of this encounter Care Teams Material Control Specialist Relationship Specialty Start Date End Date Malina Nevarez DO [address] [place] [address] PCP - General Family Medicine 02/17/24 documented as of this encounter
== END 2024-09-16 10:12 | disposition home or self-care (01) ==
LOC: HO.HHCX 10:11
PROVIDERS: Visit Provider Internal Medicine
DX: M62.838 Other muscle spasm (principal)
CPT/HCPCS: 72050

== ENCOUNTER → 2024-09-16 10:12 | Outpatient (BNV) | payer MEDICAID, SELFPAY | PROVIDERS: Visit Provider Radiology Diagnostic Radiology | DX: M54.2 Cervicalgia (principal) | CPT/HCPCS: 72050 ==

== ENCOUNTER 2024-10-27 09:41 | Day surgery (SDC) | payer MEDICAID, SELFPAY ==
[2024-10-27 10:13] VITALS: BP 121/74; PULSE 81; RESP 15; TEMP 36.8; O2SAT 96; BMI 29.5
--- NOTE | 2024-10-27 10:24 | MHC.SHP ---
Pre-Procedural Eval Section A - 24 Hr Update-Section A only Date of Service: 10/27/24 The patient is an INPATIENT: No Changes since office visit: No Cold of Flu in the past 2 weeks, No New Medical Problems, No Changes in Medication and No Patient answered all questions The patient has been examined within 24 hours of the surgical procedure. The History & Physical has been completed within 30 days and I have reviewed it.: Yes Section B - Complete if H&P > 30 days Chief Complaint: Carpal tunnel syndrome, left upper limb Allergies: Allergies Allergy/AdvReac Type Severity Reaction Status Date / Time No Known Allergies Allergy Verified 10/27/24 10:15 Plan Diagnosis/Plan: Unchanged I have reviewed the history and physical and performed a pertinent physical examination on my patient. No changes have occurred unless specified. Time Spent With Patient Time: Total time managing care of this patient today ____ minutes.
--- NOTE | 2024-10-27 10:25 | P.OP_ITS ---
Operative Note Operative Note Date of Service: 10/27/24 Narrative: Preop diagnosis: 1. Left Carpal tunnel syndrome Postop diagnosis: same Procedure: 1. Left Carpal tunnel release Surgeon: Ivy Parker MD Project Development Director: Kaden QUINN Anesthesia: local block using 1% lidocaine with epinephrine Findings: Thickened transverse carpal ligament. EBL: Less than 5 mL Specimens: None Complications: None Disposition: Brought to recovery room in stable condition Plan: Follow-up for 10-14 days for wound check and suture removal Indications: The patient is a 39 years old, with left carpal tunnel syndrome that has been unresponsive to nonoperative management. The risks and benefits of operative treatment including but not limited to risk of damage to blood vessels, nerves, tendons, infection, persistent pain, persistent symptoms, or possible need for additional surgery were discussed with the patient and the patient wishes to proceed with surgery. Procedure: Once consent was obtained a local block was performed using a combination of 1% lidocaine with epinephrine. The patient was then brought back to the operating suite and placed on the operative table in supine position. The left upper extremity was prepped and draped in a standard surgical fashion. Once assured that we had a good block, a 2.0 cm longitudinal incision was made centered over the carpal tunnel. The incision was made through the skin to the subcutaneous tissues using a #15 blade. Dissection was made down to the level of the transverse carpal ligament with care being taken to protect the palmar cutaneous nerve. Once the transverse carpal ligament was clearly visualized, a longitudinal incision was made in the transverse carpal ligament 1st using a #15 blade, then using tenotomy scissors under direct visualization. Care was taken to look for and protect the motor branch of the median nerve when seen in this area. Once satisfied with our carpal tunnel release the wound was copiously irrigated with normal saline and hemostasis was obtained with a brief period of local pressure. The skin edges were reapproximated with some 5.0 nylon suture material and a sterile dressing was applied. The patient appears to have tolerated the procedure well and with no complications. All digits were well vascularized at the conclusion of the case.
[2024-10-27 11:45] VITALS: BP 133/83; PULSE 70; RESP 22; TEMP 36.4; O2SAT 97
== END 2024-10-27 11:46 | disposition home or self-care (01) ==
PROVIDERS: PCP Family Medicine; Visit Provider Orthopaedic Surgery
PROC: (CPT 64721; principal; 2024-10-27 12:30)
DX: G56.02 Carpal tunnel syndrome, left upper limb (principal); Z98.890 Other specified postprocedural states; Z87.891 Personal history of nicotine dependence
CPT/HCPCS: 64721; J0171; J2003

== ENCOUNTER → 2024-10-27 09:41 | Outpatient (BNV) | payer MEDICAID, SELFPAY | PROVIDERS: PCP Family Medicine; Visit Provider Orthopaedic Surgery | DX: G56.02 Carpal tunnel syndrome, left upper limb (principal) | CPT/HCPCS: 64721 ==

== ENCOUNTER 2024-11-10 12:32 | Outpatient (AMB) | payer MEDICAID, SELFPAY ==
--- NOTE | 2024-11-10 12:50 | MHC.OFFVIS ---
Vital Signs 11/10/24 12:56 Height 5 ft 10 in Weight 205 lb BMI 29.4 Handedness Right Intake Visit Reasons: PO-Lt CTR 10/27/24 Intake Note: Rigo is a 39 year old right hand dominant male who presents today post operatively s/p left carpal tunnel release DOS: 10/27/24 w/ Dr Ivy Parker. Patient denies any pain, numbness or tingling. Denies discharge from incison site. Sutures removed and steri strips applied. Allergies No Known Allergies Allergy (Verified 11/10/24 12:56) HPI HPI PO-Lt CTR 10/27/24: Details: Rigo is a 39 year old right hand dominant male who presents today post operatively s/p left carpal tunnel release DOS: 10/27/24 w/ Dr Ivy Parker. Patient denies any pain, numbness or tingling. Denies discharge from incison site. Sutures removed and steri strips applied. 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 Good APB muscle firing and good finger cross. Vascular: Capillary refill brisk. ROM: Patient can make a fist and extend all their digits. Skin: Well approximated and well healing incision site noted on the volar aspect of the patient's right left General: No ecchymosis. No erythema or evidence of infection. Assessment & Plan Assessment & Plan (1) Carpal tunnel syndrome, bilateral: Code(s): G56.03 - Carpal tunnel syndrome, bilateral upper limbs Category: Medical Plan 1. Carpal tunnel syndrome, left, status post carpal tunnel release DOS 10/27/2024 Patient appears to be recovering well postoperatively Patient is educated about the typical recovery course At this time, patient was informed that he will require no further acute follow-up with us for his right carpal tunnel release, as he appears to be recovering very well Patient was amenable to this plan Coding Level of Care Code Global (47712) Diagnoses Carpal tunnel syndrome, bilateral G56.03
[2024-11-10 12:56] VITALS: BMI 29.4
--- OUTSIDE RECORDS SUMMARY | 2024-11-10 15:14 | XMS_ITS | Encounter Summary ---
Author Organization [employer] Address [address] [place] [address] Care Team Providers Care Elementary Supervisor Name Role Phone Malina Nevarez DO Primary Care Provider [phone] Reason for Visit * Reason Onset Date Comments Appointment Request 10/29/2024 Encounter Details Date Type Department Care Team ([facility] st Contact Info) Description 10/29/2024 Telephone [facility] [address] [place] [address] Malina Nevarez DO [address] [place], [place] [phone] Appointment Request Social History Tobacco Use Types Packs/Day Years [...] encounter Miscellaneous Notes * Telephone Encounter - Anneliese Fish MA - 11/03/2024 10:01 AM EDT L/M to patient vm Dr. Geri andersont have any sooner appt. Available. Will call back if it is any cancellation. * Telephone Encounter - Raúl Reina - 10/29/2024 4:05 PM EDT Tc from spouse requesting a callback as spouse will like to schedule appointment together for follow up anything the soonest availability. documented in this encounter Plan of Treatment Not on file documented as of this encounter Visit Diagnoses Not on filedocumented in this encounter Additional Health Concerns Assessment Noted Time PHQ-9 Depression Total Score: 18 024 10:07 AM EST documented as of this encounter Care Teams Elementary Supervisor Relationship Specialty Start Date End Date Malina Nevarez DO [address] [place] [address] PCP - General Family Medicine 02/17/24 documented as of this encounter
--- OUTSIDE RECORDS SUMMARY | 2024-11-10 15:14 | XMS_ITS | Encounter Summary ---
Author Organization [employer] Address [address] [facility] [address] [place] [address] Care Team Providers Care Search And Rescue Officer Name Role Phone Malina Nevarez DO Primary Care Provider [phone] Leelee Francisco MD Primary Care Provider [phone] Malina Nevarez DO Primary Care Provider + [phone] Reason for Visit * Reason Onset Date Comments New Patient 04/18/2023 Encounter Details Date Type Department Care Team (Late st Contact Info) Description 04/18/2023 Telephone [facility] [address] [place], [place] [phone] Bobby Ortega MD [address] [place], [place] [phone] New Patient Social History Tobacco Use Types [...] been transfer over to wait list for [facility] EFFECTIVE SINCE 02/15/2023 documented in this encounter Plan of Treatment Not on file documented as of this encounter Visit Diagnoses Not on filedocumented in this encounter Care Teams Search And Rescue Officer Relationship Specialty Start Date End Date Malina Nevarez DO [address] [place] [address] PCP - General Family Medicine 06/05/23 07/28/23 Leelee Francisco MD [address] [place] [address] PCP - General Family Medicine 11/29/23 02/16/24 Malina Nevarez DO [address] [place] [address] PCP - General Family Medicine 02/17/24 documented as of this encounter
--- OUTSIDE RECORDS SUMMARY | 2024-11-10 15:14 | XMS_ITS | Encounter Summary ---
Author Organization [employer] Address [address] [facility] 7t [place] [address] Care Team Providers Care Heading Repairer Name Role Phone Arianne Nevarezfer Primary Care Provider Encounter Details Date Type Department Care Team (Late st Contact Info) Description 10/30/2024 Population Health [facility] (C3) Department [address] [facility] [address] [place] [phone] Provider, Population Health Generic Social History Tobacco Use Types Packs/Day Years [...] documented as of this encounter Care Teams Heading Repairer Relationship Specialty Start Date End Date Malina Nevarez DO [address] [place] [address] PCP - General Family Medicine 02/17/24 documented as of this encounter
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
== END 2024-11-10 12:56 | disposition home or self-care (01) ==
LOC: HO.HOS 12:33
PROVIDERS: PCP Family Medicine
DX: G56.03 Carpal tunnel syndrome, bilateral upper limbs (principal)
CPT/HCPCS: 99024

== ENCOUNTER → 2024-11-10 12:32 | Outpatient (BNVA) | payer MEDICAID, SELFPAY | PROVIDERS: PCP Family Medicine | DX: Z47.89 Encounter for other orthopedic aftercare (principal); G56.01 Carpal tunnel syndrome, right upper limb; Z98.890 Other specified postprocedural states | CPT/HCPCS: 99212 ==

== ENCOUNTER 2025-02-16 09:54 | Outpatient (REF) | payer MEDICAID, SELFPAY ==
--- NOTE | ~2025-02-16 | XR_ITS ---
EXAMINATION: XR SHOULDER, LEFT CLINICAL INFORMATION: Left shoulder pain COMPARISON: None available. TECHNIQUE: External rotation, Grashey, and scapular Y views of the left shoulder. FINDINGS: The AC joint is intact and not degenerated. There is no dislocation. There are no degenerative changes. No fracture is identified. XR/XR shoulder LT min 2V IMPRESSION: Unremarkable left shoulder Electronically signed by: Frank Sky MD 02/16/2025 10:14 AM EDT
--- OUTSIDE RECORDS SUMMARY | 2025-02-16 10:51 | XMS_ITS | Encounter Summary ---
Author Organization [facility] Address [address] [facility] 7 [place] [address] Care Team Providers Care Deliverer Merchandise Name Role Phone Malina Nevarez DO Primary Care Provider [phone] Leelee Francisco MD Primary Care Provider [phone] Malina Nevarez DO Primary Care Provider + [phone] Reason for Visit * Reason Onset Date Comments New Patient 04/18/2023 Encounter Details Date Type Department Care Team (Late st Contact Info) Description 04/18/2023 Telephone [facility] [address] [place], [place] [phone] Bobby Ortega MD [address] [place], [place] [phone] New Patient Social History Tobacco Use Types [...] been transfer over to wait list for [employer]. EFFECTIVE SINCE 02/15/2023 documented in this encounter Plan of Treatment Not on file documented as of this encounter Visit Diagnoses Not on filedocumented in this encounter Care Teams Deliverer Merchandise Relationship Specialty Start Date End Date Malina Nevarez DO [address] [place] [address] PCP - General Family Medicine 06/05/23 07/28/23 Leelee Francisco MD [address] [place] [address] PCP - General Family Medicine 11/29/23 02/16/24 Malina Nevarez DO [address] [place] [address] PCP - General Family Medicine 02/17/24 documented as of this encounter
[2025-02-16 11:39] LABS: Alanine Aminotransferase 90 U/L (0-40); Albumin Level 4.7 g/dL (3.5-5.0); Alkaline Phosphatase 67 U/L (39-117); Anion Gap 12 (12-20); Aspartate Amino Transferase 37 U/L (5-37); Blood Urea Nitrogen 10 mg/dL (9-16); Calcium 9.4 mg/dL (8.4-10.2); Carbon Dioxide 29 mmol/L (22-29); Chloride 106 mmol/L (96-108); Cholesterol 265 mg/dL (<200); Estimated Glomerular Filt Rate > 60; HDL Cholesterol 41 mg/dL (>40); Potassium 3.8 mmol/L (3.3-5.1); Sodium 143 mmol/L (135-145); Total Protein 7.5 g/dL (6.5-8.0); Triglycerides 166 mg/dL (<150)
[2025-02-16 11:49] LABS: Free T4 (Free Thyroxine) 1.06 ng/dL (0.71-1.85); Thyroid Stimulating Hormone 0.91 uIU/mL (0.32-4.0)
[2025-02-16 11:55] LABS: Hematocrit 47.1 % (42.0-52.0); Hemoglobin 16.1 g/dl (14.0-18.0); Mean Corpuscular HGB Conc 34.2 g/dl (31.0-36.0); Mean Corpuscular Hemoglobin 29.9 pg (27.0-33.0); Mean Corpuscular Volume 87.4 fL (80.0-98.0); NRBC Abs Auto 0.000 X10*3/uL (0.0-0.012); NRBC Pct Auto 0.0 /100WBC (0.0-0.2); Platelet Count 217 X10*3/uL (160-400); Red Blood Count 5.39 X10*6/uL (4.60-5.80); White Blood Count 6.1 X10*3/uL (4.8-10.8)
[2025-02-16 11:57] LABS: HBS Num1 > 1000.00 mIU/mL (0-7.99); HBc Num1 0.06 S/CO (0.00-0.79); HBsAGNum1 0.51 S/CO (0.00-0.99); HIV Num 1 0.05 S/CO (0.00-0.99); Hepatitis B Surface Antigen Negative (Negative); ~HepC Num1 0.09 S/CO (0.00-0.79); ~Hepatitis B Surface Antibody REACTIVE (Nonreactive); ~Hepatitis C Antibody Nonreactive (Nonreactive)
[2025-02-16 12:02] LABS: Hemoglobin A1C 135.2708 umol/L; Total Hemoglobin (HGBA1C) 4232.3019 umol/L
[2025-02-16 13:03] LABS: CT PCR Urine NOT DETECTED (Not Detect.); NG PCR Urine NOT DETECTED (Not Detect.)
[2025-02-18 08:43] LABS: ~Hepatitis A Antibody IgG 0.20 S/CO (0.00-0.99)
== END 2025-02-16 09:55 | disposition home or self-care (01) ==
LOC: HO.HHCX 09:54
PROVIDERS: Visit Provider Family Medicine
DX: M25.512 Pain in left shoulder (principal); M25.511 Pain in right shoulder; F33.9 Major depressive disorder, recurrent, unspecified; M54.50 Low back pain, unspecified; G89.29 Other chronic pain; G56.03 Carpal tunnel syndrome, bilateral upper limbs; G47.33 Obstructive sleep apnea (adult) (pediatric); K76.0 Fatty (change of) liver, not elsewhere classified; Z00.00 Encounter for general adult medical examination without abnormal findings
CPT/HCPCS: 36415; 73030; 80048; 80061; 80076; 82105; 82306; 83036; 84439; 84443; 85027; 86592; 86704; 86706; 86708; 86803; 87340; 87389; 87491; 87591

== ENCOUNTER → 2025-02-16 09:54 | Outpatient (BNV) | payer MEDICAID, SELFPAY | PROVIDERS: Visit Provider Radiology Diagnostic Radiology | DX: M25.512 Pain in left shoulder (principal) | CPT/HCPCS: 73030 ==

== ENCOUNTER 2025-02-16 10:04 | Outpatient (REF) | payer MEDICAID, SELFPAY | END 2025-02-16 10:05 | disposition home or self-care (01) | LOC: HO.HHCL 10:04 | PROVIDERS: PCP Family Medicine; Visit Provider Family Medicine | DX: Z13.89 Encounter for screening for other disorder (principal) ==

== ENCOUNTER 2025-04-08 14:06 | Outpatient (AMB) | payer MEDICAID, SELFPAY ==
--- NOTE | 2025-04-08 14:11 | MHC.OFFVIS ---
Vital Signs 04/08/25 14:20 Height 5 ft 10 in Weight 212 lb BMI 30.4 BP 128/85 Blood Pressure Location Rt brachial Position Sitting Pulse 88 Intake Visit Reasons: gallbladder Intake Note: Patient referred by pcp Dr. Nevarez for evaluation and treatment of possible gallbladder polyps. Abdomen US scheduled on 05-06-2025. Patient c/o: on and off pain on RUQ. Recent pain attack called ambulance but was taken to [facility], waited for hours and left as pain had subsided. Abdomen US: 09-01-2024 Lacing Presser Required: Yes Information Interpreted: clinical only (Jen # [id number]) Accompanied by: Kenny spouse Allergies No Known Allergies Allergy (Verified 04/08/25 14:19) Medication List - Last Reconciled 04/08/25 by Paolo Loyd MD acetaminophen ER mg PO Q8H PRN amitriptyline 10 mg PO BEDTIME baclofen 10 mg PO BID PRN fluoxetine 40 mg PO DAILY hydroxyzine HCl 25 - 50 mg PO BEDTIME PRN naproxen 500 mg PO BID trazodone 200 mg PO BEDTIME HPI Comments Details: 40-year-old male patient presenting for evaluation of complaints of abdominal pain felt mainly in the epigastrium and right upper quadrant. The pain comes and goes but most recently was quite severe necessitating a visit by ambulance to the emergency department. After waiting many hours in the waiting room however he left after the pain subsided. The pain was located mainly in the epigastrium with radiation into the substernal location and was associated with shortness of breath. Subsequent workup with ultrasound of the abdomen revealed multiple adherent densities within the gallbladder suggestive of gallbladder polyps with no wall thickening or pericholecystic fluid. He was uncertain if the pain is associated with fatty food intolerance. He denies any fever or chills. 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 Review of Systems Const All systems reviewed & are unremarkable except as noted in HPI and below Physical Exam Vital Signs: Last Vital Signs Pulse 88 04/08/25 14:20 BP 128/85 04/08/25 14:20 BMI result Body Mass Index 30.4 Const General: cooperative and no acute distress Nutritional Appearance: well nourished Orientation/consciousness: patient oriented x3 Limitations: no limitations HEENT Head: Yes normocephalic and Yes atraumatic Ears: hearing grossly normal bilaterally Resp Effort & Inspection: normal respiratory effort, no audible wheezes, no cough and no respiratory distress Cardio Jugular venous distension: no JVD GI Inspection: Yes normal to inspection Palpation (GI): Soft to palpation, Tenderness to palpation present (GI) in the RUQ; Quijano's sign negative, no guarding, not rigid, hepatosplenomegaly present and no hepatosplenomegaly Percussion: Yes normal to percussion Auscultation: normal bowel sounds Rectal Exam - Male: Yes deferred Skin Other: Warm, dry, no rash Neuro General: patient oriented x3 Extrem General: Yes no clubbing, cyanosis or edema Assessment & Plan Assessment & Plan (1) Biliary colic: Code(s): K80.50 - Calculus of bile duct without cholangitis or cholecystitis without obstruction Category: Medical (2) Gallbladder polyp: Code(s): K82.4 - Cholesterolosis of gallbladder Category: Medical Plan 40-year-old male patient presenting with recurring episodes of abdominal pain felt mainly in the epigastrium and right upper quadrant which is occasionally severe enough to require evaluation in the emergency department. Workup revealed multiple gallbladder polyps some of which are located at the neck of the gallbladder and may be causing some of his abdominal symptoms. His symptoms are quite suggestive of biliary colic. We discussed the possibility of a laparoscopic or possible open cholecystectomy although it is difficult to know if his symptoms will improve with the surgery. After discussion of the procedure, risks, and alternatives, he consents to a laparoscopic or possible open cholecystectomy. He will be scheduled as a short-stay surgery. Coding Level of Care Code New Pt Level 4 (75175) Diagnoses Biliary colic K80.50 Gallbladder polyp K82.4
--- OUTSIDE RECORDS SUMMARY | 2025-04-08 14:15 | XMS_ITS | Encounter Summary ---
Author Organization [facility] Address [address] [place] [address] Care Team Providers Care Flight Agent Name Role Phone Malina Nevarez DO Primary Care Provider + [phone] Leelee Francisco MD Primary Care Provider [phone] Malina Nevarez DO Primary Care Provider + [phone] Reason for Visit * Reason Onset Date Comments New Patient 04/18/2023 Encounter Details Date Type Department Care Team (Late st Contact Info) Description 04/18/2023 Telephone [facility] MEDICINE [address] [place], [place] [phone] Bobby Ortega MD [address] [place], [place] [phone] New Patient Social History Tobacco Use Types [...] 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
[2025-04-08 14:20] VITALS: BP 128/85; PULSE 88; BMI 30.4
== END 2025-04-08 14:31 | disposition home or self-care (01) ==
LOC: HO.HGS 14:07
PROVIDERS: PCP Family Medicine; Visit Provider Surgery
DX: K80.50 Calculus of bile duct without cholangitis or cholecystitis without obstruction (principal)
CPT/HCPCS: 99204

== ENCOUNTER → 2025-04-08 14:06 | Outpatient (BNVA) | payer MEDICAID, SELFPAY | PROVIDERS: PCP Family Medicine; Visit Provider Surgery | DX: K80.50 Calculus of bile duct without cholangitis or cholecystitis without obstruction (principal) | CPT/HCPCS: 99202 ==

== ENCOUNTER 2025-04-22 07:09 | Day surgery (SDC) | payer MEDICAID, SELFPAY ==
--- OUTSIDE RECORDS SUMMARY | 2025-04-12 17:47 | XMS_ITS | Encounter Summary ---
Author Organization [employer] Address [address] [place] [address] Care Team Providers Care Trademark Attorney Name Role Phone Malina Nevarez DO Primary Care Provider [phone] Reason for Visit * Reason Onset Date Comments Durable Medical Equipment 04/12/2025 Encounter Details Date Type Department Care Team ([facility] st Contact Info) Description 04/12/2025 Telephone [facility] MEDICINE [address] [place], [place] [phone] Malina Nevarez DO [address] [place], [place] [phone] Durable Medical Equipment Social History Tobacco Use Types Packs/Day Years Used Date Smoking Tobacco: Former Cigarettes Passive Smoke Exposure: Past Smokeless Tobacco: Never Alcohol Use Standard Drinks/Week Comments Never 0 (1 standard drink = 0.6 oz pur e alcohol) Depression Answer Date Recorded Patient Health Questionnaire-9 Score 18 08/05/2024 Patient Health Questionnaire-9 Score 18 08/05/2024 Last PHQ-9: Questionnaire Data Not on file 1 10/06/2023 Housing Stability Answer Date Recorded What is your housing situation today? I have andrez peng 02/16/[address] you li ve. Do you have problems with any of the following? None of the above 02/16/2025 Food Insecurity Answer Date Recorded Within the past 12 months, y ou worried that your food would run out before you got money to buy more: Sometimes True 2024 Within the past 12 months,th e food you bought just didn't last and you didn't have enough money to get more: Sometimes True 02/16/2025 Transportation Answer Date Recorded In the past 12 months, has l ack of transportation kept you from medical appts, meetings, work or from getting things needed for daily living? No 02/16/2025 Utilities Answer Date Recorded In the past 12 months, has t he electric, gas, oil or water company threatened to shut off services in your home? No 02/16/2025 Depression Answer Date Recorded Patient Health Questionnaire-2 [...] encounter Miscellaneous Notes * Telephone Encounter - Miguel Quique - 04/12/2025 2:45 PM EDT Tc from pt requesting call back regarding Cpap machine. Pt states he had spoke to pcp last week buthas not received a call back. Please contact pt [phone]. (Welsh Speaker) documented in this encounter Plan of Treatment Not on file documented as of this encounter Visit Diagnoses Not on filedocumented in this encounter Additional Health Concerns Assessment Noted Time PHQ-9 Depression Total Score: 18 024 10:07 AM EST documented as of this encounter Care Teams Trademark Attorney Relationship Specialty Start Date End Date Malina Nevarez DO [address] [place] [id number] PCP - General Family Medicine 02/17/24 documented as of this encounter
--- OUTSIDE RECORDS SUMMARY | 2025-04-12 17:47 | XMS_ITS | Encounter Summary ---
Author Organization [facility] Address [address] [place] [address] Care Team Providers Care Core Rescuer Name Role Phone Malina Nevarez DO Primary Care Provider + [phone] Leelee Francisco MD Primary Care Provider [phone] Malina Nevarez DO Primary Care Provider + [phone] Reason for Visit * Reason Onset Date Comments New Patient 04/18/2023 Encounter Details Date Type Department Care Team (Late st Contact Info) Description 04/18/2023 Telephone [facility] MEDICINE [address] [place], [place] [phone] Bobby Ortega MD [address] [place], [place] [phone] New Patient Social History Tobacco Use Types [...] 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
--- OUTSIDE RECORDS SUMMARY | 2025-04-12 17:48 | XMS_ITS | Clinical Summary ---
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 Acct:[id number] Age/Sex: 40 / M ADM Date: 02/16/25 Loc: SKYE Attending Dr: Malina Nevarez DO Ordering Physician: Malina Nevarez DO Date of Service: 02/16/25 Procedure(s): XR shoulder LT min 2V Accession Number(s): [id number] cc: Malina Nevarez DO EXAMINATION: XR SHOULDER, LEFT CLINICAL INFORMATION: Left shoulder pain COMPARISON: None available. TECHNIQUE: External rotation, Grashey, and scapular Y views of the left shoulder. FINDINGS: The AC joint is intact and not degenerated. There is no dislocation. There are no degenerative changes. No fracture is identified. XR/XR shoulder LT min 2V IMPRESSION: Unremarkable left shoulder Electronically signed by: Frank Sky MD 02/16/2025 10:14 AM EDT Dictated By: Frank Sky MD Signed By: <Electronically signed by Frank Sky MD in OV> 02/16/25 1014 DD/ 0913 TD/TT: 02/16/25 0920 Fancy Sewer: Procedure Note Donotuseinterpreter, Image - 02/16/2025 [place] [address] XRay Report Signed Patient: Rigo HammMR#: [id number] : 1985Acct:[id number] Age/Sex: 40 / MADM Date: 02/16/25 Loc: SKYE Attending Dr: Malina Nevarez DO Ordering Physician: Malina Nevarez DO Date of Service: 02/16/25 Procedure(s): XR shoulder LT min 2V Accession Number(s): [id number] cc: Malina Nevarez DO EXAMINATION: XR SHOULDER, LEFT CLINICAL INFORMATION: Left shoulder pain COMPARISON: None available. TECHNIQUE: External rotation, Grashey, and scapular Y views of the left shoulder. FINDINGS: The AC joint is intact and not degenerated. There is no dislocation. There are no degenerative changes. No fracture is identified. XR/XR shoulder LT min 2V IMPRESSION: Unremarkable left shoulder Electronically signed by: Frank Sky MD 02/16/2025 10:14 AM EDT RP Dictated By: Frank Sky MD Signed By: <Electronically signed by Frank Sky MD in OV> 02/16/25 1014 DD/ 0913 TD/TT: 02/16/25919 Fancy Sewer: Malina Nevarez DO IMG XR PROCEDURES Final Resu lt from Last 3 Months Insurance [place] [id number] HSN FULL [facility] Care Teams Bus Person Dishwasher Relationship Specialty Start Date End Date Malina Nevarez DO [address] [place] [phone] PCP - General Family Medicine 02/17/24
[2025-04-20 08:22] VITALS: BMI 30.4
--- NOTE | 2025-04-21 08:35 | HO.ANESPROP2 ---
Documented by User: Samantha Mcmillan NP 04/21/25 08:36 HPI - Anesthesia Eval Consult details Narrative: 40yo M for Cholecystectomy Laparoscopic,possible open PMFSH Active Problems Active Problems: All Active Problems Gallbladder polyp (Acute) Biliary colic (Acute) Painful arc syndrome of right shoulder (Acute) Tendinitis of right rotator cuff (Acute) Orthopedic hardware present (Acute) Carpal tunnel syndrome, bilateral (Acute) Past Medical History Medical History Osteoarthritis Back pain Sleep apnea Depression Surgical History Surgical History History of carpal tunnel release Hx of tonsillectomy History of surgery Social History Social History Alcohol intake: former Patient Tobacco Use Status: Former Tobacco user Use of substances other than those prescribed or required for medical reasons: No Are you DNR?: No Advance Directives: No Advance Directives Information Provided: Yes Current occupational status: employed 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 Meds Allergies Allergy/AdvReac Type Severity Reaction Status Date / Time No Known Allergies Allergy Verified 04/08/25 14:19 Home Medications ?Medication ?Instructions ?Recorded ?Confirmed ?Last Taken ?Type acetaminophen 650 mg mg PO Q8H PRN 06/15/24 04/08/25 Unknown History tablet,extended release amitriptyline 10 mg tablet 10 mg PO BEDTIME 06/15/24 04/08/25 Unknown History baclofen 10 mg tablet 10 mg PO BID PRN muscle spasm 06/15/24 04/08/25 Unknown History fluoxetine 40 mg capsule 40 mg PO DAILY 06/15/24 04/08/25 Unknown History hydroxyzine HCl 25 mg tablet 25 - 50 mg PO BEDTIME PRN 06/15/24 04/08/25 Unknown History naproxen 500 mg tablet 500 mg PO BID 06/15/24 04/08/25 Unknown History trazodone 100 mg tablet 200 mg PO BEDTIME 06/15/24 04/08/25 Unknown History Exam Height,Weight and Vital Signs: Height 5 ft 10 in Weight 96.162 kg Pertinent Lab Results Pertinent Lab Results: Laboratory Tests 02/16/25 02/16/25 10:10 10:13 WBC 6.1 Hgb 16.1 Hct 47.1 Plt Count 217 Sodium 143 Potassium 3.8 Chloride 106 Carbon Dioxide 29 BUN 10 Creatinine 1.10 Assessment and Plan Assessment Anesthesia Assessment: Chart Reviewed Documented by User: Kb Duarte MD 04/22/25 08:46 [facility] Past Medical History Medical History Osteoarthritis Back pain Sleep apnea Depression Family History Family history of problems with anesthesia: No Surgical History Surgical History History of carpal tunnel release Hx of tonsillectomy History of surgery History of Problems with Anesthesia: No Social History Social History Alcohol intake: former Patient Tobacco Use Status: Former Tobacco user Use of substances other than those prescribed or required for medical reasons: No Are you DNR?: No Advance Directives: No Advance Directives Information Provided: Yes Current occupational status: employed 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 Meds Allergies Allergy/AdvReac Type Severity Reaction Status Date / Time No Known Allergies Allergy Verified 04/08/25 14:19 Home Medications ?Medication ?Instructions ?Recorded ?Confirmed ?Last Taken ?Type acetaminophen 650 mg mg PO Q8H PRN 06/15/24 04/08/25 Unknown History tablet,extended release amitriptyline 10 mg tablet 10 mg PO BEDTIME 06/15/24 04/08/25 Unknown History baclofen 10 mg tablet 10 mg PO BID PRN muscle spasm 06/15/24 04/08/25 Unknown History fluoxetine 40 mg capsule 40 mg PO DAILY 06/15/24 04/08/25 Unknown History hydroxyzine HCl 25 mg tablet 25 - 50 mg PO BEDTIME PRN 06/15/24 04/08/25 Unknown History naproxen 500 mg tablet 500 mg PO BID 06/15/24 04/08/25 Unknown History trazodone 100 mg tablet 200 mg PO BEDTIME 06/15/24 04/08/25 Unknown History Exam Airway Mallampati Class: II TM Dist: >3cm Neck ROM: Full Heart: rrr Lungs: cta Assessment and Plan Assessment Anesthesia Assessment: Anesthesia Plan Discussed Final Anesthetic Review Family History of Problems with Anesthesia: No History of Problems with Anesthesia: No NPO: Yes ASA Class: II Final Preanesthetic Review: No Changes in Pt Med Stat, Meds/Allgs Chart Reviewed, Consent Obtained/Reviewed and Anes Risks/Benef Reviewed Patient Risk: Low Procedure Risk: Intermediate Anesthetic Plan Anesthetic Plan: GA and Agree w/ Assess. and Plan Disposition: Standard PACU
[2025-04-22] VITALS (8 sets, daily range): BP systolic 125–139; BP diastolic 80–89; PULSE 67–75; RESP 16–18; TEMP 36.2–36.3; O2SAT 94–96
[2025-04-22] MEDS: Lactated Ringers 1,000 ML 100 ML IVCONT (08:04)
--- NOTE | 2025-04-22 08:20 | MHC.SHP ---
Pre-Procedural Eval Section A - 24 Hr Update-Section A only Date of Service: 04/22/25 The patient is an INPATIENT: No Changes since office visit: Yes Patient answered all questions; No Cold of Flu in the past 2 weeks, No New Medical Problems and No Changes in Medication The patient has been examined within 24 hours of the surgical procedure. The History & Physical has been completed within 30 days and I have reviewed it.: Yes Section B - Complete if H&P > 30 days Chief Complaint: Cholesterolosis of gallbladder,cholecystitis Allergies: Allergies Allergy/AdvReac Type Severity Reaction Status Date / Time No Known Allergies Allergy Verified 04/08/25 14:19 Plan Diagnosis/Plan: Unchanged I have reviewed the history and physical and performed a pertinent physical examination on my patient. No changes have occurred unless specified. Time Spent With Patient Time: Total time managing care of this patient today ____ minutes.
--- NOTE | 2025-04-22 09:09 | P.OP_ITS ---
Operative Note Operative Note Date of Service: 04/22/25 Narrative: Preoperative diagnosis: Biliary colic, gallbladder polyp Postoperative diagnosis: Same Procedure: Laparoscopic cholecystectomy Surgeon: Paolo Loyd MD Health Support Specialist: Alice De Oliveira PA-C; Callum Benjamin MS-3 Anesthesia: General endotracheal Indications for procedure: 40-year-old male patient presenting with complaints of abdominal pain in the right upper quadrant found to have multiple gallbladder polyps within the gallbladder including the neck of the gallbladder. Pain is mainly located right upper quadrant and epigastrium as occasionally severe enough to require a visit to the emergency department. Operative findings: Normal-appearing gallbladder with mild to the gallbladder wall Specimen: Gallbladder Estimated blood loss: Less than 2 mL Complications: None Procedure details: Patient was brought to the OR and placed in a supine position. After administering general anesthesia the patient's abdomen was prepped with ChloraPrep and draped in a sterile fashion. A surgical time-out was called the consent confirmed. Patient received preoperative antibiotics and Venodyne boots were in place. Local anesthesia consisting of 0.5% Sensorcaine was infiltrated in the periumbilical region. A 5 mm incision was then made with a scalpel. This was done in a transverse fashion. A Veress needle was then inserted while elevating the abdominal cavity with towel clips. After positive drop test the abdomen was insufflated to a pressure 15 mmHg. A 5 mm port was then inserted under direct vision and the camera inserted. The abdomen was explored in the above findings noted. A 12 mm trocar was then placed in the epigastric region and 2 5 mm trocar was placed in the right upper quadrant. Patient was then placed in a reverse Trendelenburg position and rotated to the left. Gallbladder was grasped and retracted cephalad. Infundibulum was then grasped and retracted away from the liver bed. A Dolphin dissector was then used to dissect the peritoneum off the infundibulum to revealed the junction with the cystic duct. The cystic artery was noted slightly posterior to this. After obtaining a critical view the cystic duct was doubly clipped and divided. Cystic artery was also doubly clipped and divided. The gallbladder was then dissected off the liver bed using electrocautery with the L hook. The gallbladder then placed in Endo-Catch bag and brought out through the epigastric incision. Liver bed was checked for hemostasis and electrocautery used to assure hemostasis. The wounds were then irrigated with saline solution and suctioned dry. CO2 was then evacuated and all trocars removed. No bleeding was noted from the trocar sites. Fascia was closed at the epigastric incision using a [id number] 0 Polysorb suture. All skin incisions were closed using a subcuticular 4-0 Polysorb suture. Steri-Strips, 2 x 2 gauze and Tegaderm were then applied. The patient tolerated the procedure well. Sponge, instrument, and needle counts reported as correct. The patient was transferred to PACU in stable condition.
== END 2025-04-22 12:14 | disposition home or self-care (01) ==
PROVIDERS: PCP Family Medicine; Visit Provider Surgery
PROC: 0FT44ZZ Resection of Gallbladder, Percutaneous Endoscopic Approach (ICD-10-PCS; CPT 47562; principal; 2025-04-22 09:20)
DX: K80.64 Calculus of gallbladder and bile duct with chronic cholecystitis without obstruction (principal); Z79.899 Other long term (current) drug therapy; Z79.1 Long term (current) use of non-steroidal anti-inflammatories (NSAID); Z98.890 Other specified postprocedural states; Z87.891 Personal history of nicotine dependence
CPT/HCPCS: 47562; 88304; J0131; J1100; J1171; J2003; J2405; J2704; J2795; J3010

== ENCOUNTER → 2025-04-22 07:09 | Outpatient (BNV) | payer MEDICAID, SELFPAY | PROVIDERS: PCP Family Medicine; Visit Provider Surgery | DX: K80.20 Calculus of gallbladder without cholecystitis without obstruction (principal); K82.8 Other specified diseases of gallbladder | CPT/HCPCS: 47562 ==

== ENCOUNTER 2025-05-03 13:31 | Outpatient (AMB) | payer MEDICAID, SELFPAY ==
--- OUTSIDE RECORDS SUMMARY | 2025-04-28 15:45 | XMS_ITS | Encounter Summary ---
Author Organization [employer] Address [address] [place] [address] Care Team Providers Care Community Service Aide Name Role Phone DeidraMalina ayon Primary Care Provider [phone] Encounter Details Date Type Department Care Team (Late st Contact Info) Description 04/28/2025 3:45 PM EDT Office Visit [facility] [address] [place] [address] Randolph, Xiao, OD [address] [place] [address] Regular astigmatism, bilateral (Primary Dx) Social History Tobacco Use Types [...] PM EDT documented as of this encounter Progress Notes * Xiao Dickson OD - 04/28/2025 3:45 PM EDT MH glasses were dispensed. documented in this encounter Plan of Treatment Not on file documented as of this encounter Visit Diagnoses Diagnosis Regular astigmatism, bilateral- Primary documented in this encounter Additional Health Concerns Assessment Noted Time PHQ-9 Depression Total Score: 18 024 10:07 AM EST documented as of this encounter Care Teams Community Service Aide Relationship Specialty Start Date End Date Malina Nevarez DO [address] [place] [address] PCP - General Family Medicine 02/17/24 documented as of this encounter
--- NOTE | 2025-05-03 13:45 | MHC.OFFVIS ---
Vital Signs 05/03/25 13:52 Weight 211 lb BP 129/77 Blood Pressure Location Rt brachial Position Sitting Pulse 85 Intake Visit Reasons: S/P lap ayesha Intake Note: Patient here s/p Laparoscopic cholecystectomy. Patient c/o: reports incisions healing well. Steri strips fell off. Still taking pain meds as needed. Surgery: () 04-22-2025 Repossession Agent Required: Yes Information Interpreted: clinical only (Lalo #[id number]) Accompanied by: Self / Same As Patient Allergies No Known Allergies Allergy (Verified 05/03/25 13:52) HPI HPI S/P lap ayesha: Details: Repossession Agent service via iPad used for this encounter. Patient expressed understanding throughout. Overall doing very well. Pain is minimal. He denies nausea or vomiting, fever, chills. 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 He denies any drainage from the incision sites. 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 Review of Systems Const All systems reviewed & are unremarkable except as noted in HPI and below Physical Exam Vital Signs: Last Vital Signs Pulse 85 05/03/25 13:52 BP 129/77 05/03/25 13:52 Const General: comfortable and no acute distress Orientation/consciousness: patient oriented x3 Resp Effort & Inspection: normal respiratory effort and able to speak in complete sentences GI Other: Incision sites clean and dry, no palpable fluid collection, no erythema no discharge nontender Inspection: No distended Palpation (GI): Soft to palpation and Tenderness to palpation present (GI) (Mild tenderness lower abdomen) Neuro General: patient oriented x3 Assessment & Plan Assessment & Plan (1) S/P laparoscopic cholecystectomy: Code(s): Z90.49 - Acquired absence of other specified parts of digestive tract Category: Medical Plan 40-year-old male s/p laparoscopic cholecystectomy on 04/22/2025 returning to the office for routine follow-up. Overall patient doing very well. Denies pain. Appetite and bowel function are at baseline. Denies fevers or chills. Denies drainage from incision sites. He felt comfortable enough to return to work, denies heavy lifting at his job. He has not been performing any of other heavy lifting at home. We will continue with activity restrictions for the next 3 weeks. On exam his abdomen is soft and benign incision sites appear clean dry and intact, no concern for infection at this time. Overall he looks well. No longer requiring routine follow up. He can follow up as needed with any concerns in the future. Coding Level of Care Code Global (77432) Diagnoses S/P laparoscopic cholecystectomy Z90.49
[2025-05-03 13:52] VITALS: BP 129/77; PULSE 85
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
--- OUTSIDE RECORDS SUMMARY | 2025-05-03 18:46 | XMS_ITS | Encounter Summary ---
Author Organization [employer] [facility] Address [address] [facility] 7 [place] [address] Care Team Providers Care Hotel Breakfast Attendant Name Role Phone Malina Nevarez DO Primary Care Provider + [phone] Leelee Francisco MD Primary Care Provider [phone] Malina Nevarez DO Primary Care Provider + [phone] Reason for Visit * Reason Onset Date Comments New Patient 04/18/2023 Encounter Details Date Type Department Care Team (Late st Contact Info) Description 04/18/2023 Telephone [facility] [address] [place], [place] [phone] Bobby Ortega MD [address] [place], [place] [phone] New Patient Social History Tobacco Use Types [...] 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 EFFECTIVE SINCE 02/15/2023 documented in this encounter Plan of Treatment Not on file documented as of this encounter Visit Diagnoses Not on filedocumented in this encounter Care Teams Hotel Breakfast Attendant Relationship Specialty Start Date End Date Malina Nevarez DO [address] [place] [phone] PCP - General Family Medicine 06/05/23 07/28/23 Leelee Francisco MD [address] [place] [address] PCP - General Family Medicine 11/29/23 02/16/24 Malina Nevarez DO [address] [place] [address] PCP - General Family Medicine 02/17/24 documented as of this encounter
== END 2025-05-03 13:55 | disposition home or self-care (01) ==
LOC: HO.HGS 13:31
PROVIDERS: PCP Family Medicine; Visit Provider Surgery
DX: Z90.49 Acquired absence of other specified parts of digestive tract (principal)
CPT/HCPCS: 99024

== ENCOUNTER → 2025-05-03 13:31 | Outpatient (BNVA) | payer MEDICAID, SELFPAY | PROVIDERS: PCP Family Medicine; Visit Provider Surgery | DX: Z98.890 Other specified postprocedural states (principal); Z90.49 Acquired absence of other specified parts of digestive tract | CPT/HCPCS: 99212 ==

== ENCOUNTER 2025-05-06 08:04 | Outpatient (REF) | payer MEDICAID, SELFPAY ==
--- NOTE | ~2025-05-06 | US_ITS ---
CLINICAL HISTORY: possible multiple GB polyps for f u eval Ultrasound of the abdomen Comparison: US - US ABDOMEN COMPLETE - 09/01/24 08:15 EST Findings: The liver is the upper limit of normal size, measuring 17.4cm. Increased echogenicity without focal lesions. Normal flow is visualized within the portal vein. No intrahepatic biliary ductal dilatation. Status post cholecystectomy. No abnormality in the gallbladder fossa. The common bile duct is normal, measuring 0.3cm. Unremarkable limited evaluation of the pancreas. The right kidney is normal in echogenicity and size, measuring 10.7cm. No nephrolithiasis or hydronephrosis. The left kidney is normal echogenicity and size, measuring 10.7cm. No nephrolithiasis or hydronephrosis. The spleen is without focal lesions and normal in size, measuring 11.6cm. The aorta and IVC are unremarkable. No ascites. Impression: Status post cholecystectomy. No abnormality in the gallbladder fossa. Hepatic steatosis. This document has been electronically signed by: Jenelle Perez MD on 05/06/2025 17:03:02
== END 2025-05-06 08:05 | disposition home or self-care (01) ==
LOC: HO.US 08:04
PROVIDERS: PCP Family Medicine; Visit Provider Family Medicine
DX: K82.4 Cholesterolosis of gallbladder (principal)
CPT/HCPCS: 76700

== ENCOUNTER → 2025-05-06 08:05 | Outpatient (BNV) | payer MEDICAID, SELFPAY | PROVIDERS: PCP Family Medicine; Visit Provider Radiology Diagnostic Radiology | DX: K76.0 Fatty (change of) liver, not elsewhere classified (principal) | CPT/HCPCS: 76700 ==

== ENCOUNTER 2025-06-04 14:07 | Outpatient (AMB) | payer MEDICAID, SELFPAY ==
--- NOTE | 2025-06-04 14:16 | A.OFFVIS_ITS ---
Intake Visit Reasons: INJ - Right shoulder injection, last inj 08/25/24 Intake Note: Rigo is a 40 year old patient who presents today for a repeat injection for his right shoulder, last injection 08/25/14. Patient reports his last injection gave him relief and would like to repeat. Community Associate Required: Yes Information Interpreted: clinical only (Lalo #[id number]) Accompanied by: Self / Same As Patient Allergies No Known Allergies Allergy (Verified 05/03/25 13:52) HPI HPI INJ - Right shoulder injection, last inj 08/25/24: Details: Mr. Maynor Morin is a 40-year-old male who presents to the office today for chronic right shoulder pain. Last cortisone injection was performed on 08/25/2024 which gave him good relief. He is looking to repeat injection while in the office today. [facility] Medical History Osteoarthritis Back pain Sleep apnea Depression Surgical History (Updated 05/03/25 @ 14:04 by Sukhi Cobian PA-C) Hx laparoscopic cholecystectomy (04/22/25) History of carpal tunnel release Hx of tonsillectomy History of surgery Social History Alcohol intake: former Comment: counts correct Patient Tobacco Use Status: Former Tobacco user Current occupational status: employed Current occupation: right hand dominant/ [employer] Review of Systems Const All systems reviewed & are unremarkable except as noted in HPI and below Physical Exam Const General: cooperative, healthy appearing and no acute distress Resp Effort & Inspection: normal respiratory effort and able to speak in complete sentences Extrem Other: Right shoulder: Forward flexion and abduction lacking about 20 degrees. External rotation to end range. Negative empty can. Negative drop arm. Pain with cross-body reach. NVI. Office Procedures AMB Joint Injection/Aspiration Joint Injection/Aspiration Primary Site: right shoulder Prep: site was prepped using aseptic technique, ethochloride spray was applied and injection warnings given Injected: 40 mg of, with 3 mL of, 1% plain lidocaine, 0.25% bupivacaine, in the subcromial space and decadron Approach Used: posterolateral Procedure: The patient tolerated the procedure well, but had some pain with the injection and there was some relief with the local anesthesia Coding 31530 - Large joint Procedure code (CPT) selection complete Assessment & Plan Assessment & Plan (1) Painful arc syndrome of right shoulder: Code(s): M75.101 - Unspecified rotator cuff tear or rupture of right shoulder, not specified as traumatic Category: Medical Plan The patient was offered a cortisone injection in the right shoulder. The patient was explained the risks, benefits, and alternatives to receiving this injection. After receiving consent for the injection, the patient had the procedure done while in the office today. The patient tolerated the procedure well with no complications. Follow-up will be PRN, or sooner if needed Coding Level of Care Code Est Pt Level 3 (78410) Diagnoses Painful arc syndrome of right shoulder M75.101 CPT Codes Coding - 26424 Large joint: 98319 - Large joint ([id number])
== END 2025-06-04 14:28 | disposition home or self-care (01) ==
LOC: HO.HOS 14:07
PROVIDERS: PCP Family Medicine; Visit Provider Physician Assistant
DX: M75.101 Unspecified rotator cuff tear or rupture of right shoulder, not specified as traumatic (principal)
CPT/HCPCS: 20610; 99213

== ENCOUNTER → 2025-06-04 14:07 | Outpatient (BNVA) | payer MEDICAID, SELFPAY | PROVIDERS: PCP Family Medicine; Visit Provider Physician Assistant | DX: M75.101 Unspecified rotator cuff tear or rupture of right shoulder, not specified as traumatic (principal) | CPT/HCPCS: 20610; 99212; J0665; J1100; J2003 ==

== ENCOUNTER 2025-08-16 13:28 | Outpatient (REF) | payer MEDICAID, SELFPAY ==
--- NOTE | ~2025-08-16 | XR_ITS ---
EXAMINATION: XR SACRUM AND COCCYX CLINICAL INFORMATION: acute b/l LBP > 2 wks with SI joint TTP COMPARISON: None available. TECHNIQUE: 2 views of the sacrum and 2 views of the coccyx were obtained. FINDINGS: The SI joints are symmetrical without sclerosis or erosive changes. The sacrum is normal. Visualized coccyx is normal. Rest of the pelvic bones are normal. The soft tissues are normal. XR/XR sacrum coccyx min 2V IMPRESSION: Unremarkable sacrum and coccyx. Electronically signed by: Clyde Franco MD 08/16/2025 02:40 PM EST
--- NOTE | ~2025-08-16 | XR_ITS ---
EXAMINATION: XR LUMBOSACRAL SPINE CLINICAL INFORMATION: acute b/l LBP > 2 wks with SI joint TTP COMPARISON: Lumbar spine 03/10/2024. TECHNIQUE: Three views of the lumbosacral spine. FINDINGS: There is normal lumbar lordosis. The vertebral heights, alignment and disc heights are normal. No visible acute fracture, dislocation or subluxation seen. The soft tissues are normal. XR/XR lumbar spine 2-3V IMPRESSION: Unremarkable lumbar spine exam. No change from 03/10/2024. Electronically signed by: Clyde Franco MD 08/16/2025 02:35 PM EST
--- OUTSIDE RECORDS SUMMARY | 2025-08-16 11:45 | XMS_ITS | Encounter Summary ---
Author Organization [employer] Address [address] [place] [address] Care Team Providers Care Sales Driver Name Role Phone Malina Nevarez DO Primary Care Provider [phone] Encounter Details Date Type Department Care Team ([facility] st Contact Info) Description 08/16/2025 11:45 AM EST Office Visit [facility] [address] [place], [place] [phone] Malina Nevarez DO [address] [place], [place] [phone] Acute bilateral low back pain without sciatica (Primary Dx); Right groin pain; Major depression, recurrent, chronic (CMS/HCC); Encounter for immunization Social History Tobacco Use Types Packs/Day Years Used Date Smoking Tobacco: Former Cigarettes Passive Smoke Exposure: Past Smokeless Tobacco: Never Alcohol Use Standard Drinks/Week Comments Never 0 (1 standard drink = 0.6 oz pur e alcohol) Depression Answer Date Recorded Patient Health Questionnaire-9 Score 19 08/16/2025 Patient Health Questionnaire-9 Score 19 08/16/2025 Last PHQ-9: Questionnaire Data Not on file 1 Housing Stability Answer Date Recorded What is [...] Answer Date Recorded Patient Health Questionnaire-2 Score 5 08/16/2025 Internet Access Answer Date Recorded Internet Access [...] Sign Reading Time Taken Comments Blood Pressure 122/70 08/16/2025 12:00 PM EST Pulse 80 08/16/2025 12:00 PM EST Temperature 36.6 C (97.9 F) 08/16/2025 12:00 PM EST Respiratory Rate 20 08/16/2025 12:00 PM EST Oxygen Saturation 97% 08/16/2025 12:00 PM EST Inhaled Oxygen Concentration - - Weight 97.2 kg (214 lb 4 oz) 08/16/2025 12:00 PM EST Height 177.8 cm (5' 10 ) 08/16/2025 12:00 PM EST Body Mass Index 30.74 08/16/2025 12:00 PM EST documented in this encounter Functional Status * SBIRT - Alcohol Question Answer Date of Assessment Author How many times in the past y ear have you had 5 or more (for men) or 4 or more (for women) drinks in a day? 0 08/16/2025 12:03 PM EST Anneliese Fish MA Score 0 08/16/2025 12:03 PM EST Anneliese Holguin MA * SBIRT - Drugs Question Answer Date of Assessment Author How many times in the past y ear have you used an illegal drug or used a prescription medication for non-medical reasons? 0 08/16/2025 12:03 PM EST Gonzalo Fish MA Score 0 08/16/2025 12:03 PM Anneliese Lara MA * Over the past 2 weeks, how often have you been bothered by any of the following problems? Question Answer Date of Assessment Author Patient Health Questionnaire -2 Score 5 08/16/2025 12:04 PM Anneliese Elaine MA * Little interest or pleasure in doing things Answer Date of Assessment Author Nearly every day 08/16/2025 12:04 PM Anneliese Elaine MA * Feeling down, depressed, or hopeless Answer Date of Assessment Author More than half the days 08/16/2025 12:04 PM Anneliese Elaine MA * Trouble falling or staying asleep, or sleeping too much Answer Date of Assessment Author Nearly every day 08/16/2025 12:04 PM Anneliese Elaine MA * Feeling tired or having little energy Answer Date of Assessment Author Nearly every day 08/16/2025 12:04 PM Anneliese Elaine MA * Poor appetite or overeating Answer Date of Assessment Author More than half the days 08/16/2025 12:04 PM Anneliese Elaine MA * Feeling bad about yourself - or that you are a failure or have let yourself or your family down Answer Date of Assessment Author More than half the days 08/16/2025 12:04 PM Anneliese Elaine MA * Trouble concentrating on things, such as reading the newspaper or watching television Answer Date of Assessment Author Nearly every day 08/16/2025 12:04 PM Anneliese Elaine MA * Moving or speaking so slowly that other people could have noticed? Or the opposite - being so fidgety or restless that you have been moving around a lot more than usual. Answer Date of Assessment Author Several days 08/16/2025 12:04 PM Anneliese Elaine MA * Thoughts that you would be better off or hurting yourself in some way Answer Date of Assessment Author Not at all 08/16/2025 12:04 PM Anneliese Elaine MA * Patient Health Questionnaire-9 Score Answer Date of Assessment Author 19 08/16/2025 12:04 PM Anneliese Elaine MA * Over the last 2 weeks, how often have you been bothered by any of the following problems? Question Answer Date of Assessment Author Feeling nervous, anxious, or on edge 3 08/16/2025 12:03 PM Anneliese Elaine MA Not being able to stop or co ntrol worrying 3 08/16/2025 12:03 PM Anneliese Elaine MA Worrying too much about diff erent things 2 08/16/2025 12:03 PM Anneliese Elaine MA Trouble relaxing 3 08/16/2025 12:03 PM Anneliese Elaine MA Being so restless that it is hard to sit still 3 08/16/2025 12:03 PM Anneliese Elaine MA Becoming easily annoyed or irritable 3 08/16/2025 12:03 PM Anneliese Elaine MA Feeling afraid as if somethi ng awful might happen 2 08/16/2025 12:03 PM Anneliese Elaine MA TOM-7 Total Score 19 08/16/2025 12:03 PM Anneliese Elaine MA * How difficult have these problems made it for you to do your work, take care of things at home, or get along with other people? Answer Date of Assessment Author Somewhat difficult 08/16/2025 12:04 PM Anneliese Lo MA documented as of this encounter Plan of Treatment Upcoming Encounters Date Type Department Care Team (Late st Contact Info) Description 11/12/2025 9:45 AM EDT Office Visit [facility] [address] [place] [address] Frandy Miranda MD [address] [place] [address] Scheduled Orders Name Type Priority Associated Diagnoses Orde r Schedule Culture, Urine, Routine Microbiology Routine Right groin pain Ordered: 08/16/2025 Chlamydia/N. Gonorrhoeae, PCR, Urine Lab Routine Right groin pain Ordered: 08/16/2025 documented as of this encounter Procedures Procedure Name Priority Date/Time Associated Diagnosis Comments XR SACRUM COCCYX 2+ VIEWS Routine 08/16/2025 2:00 PM EST Acute bilateral low back pain without sciatica XR LUMBAR SPINE 2-3 VIEWS Routine 08/16/2025 1:58 PM EST Acute bilateral low back pain without sciatica POCT URINALYSIS DIPSTICK Routine 08/16/2025 1:08 PM EST Right groin pain documented in this encounter Results * XR Sacrum Coccyx 2+ Views (08/16/2025 2:00 PM EST) Anatomical Region Laterality Modality Sacrum, Coccyx Radiographic Merry ging 08/16/2025 2:00 PM EST Narrative 08/16/2025 2:43 PM EST [address] [address] XRay Report Signed Patient: Rigo Hamm MR#: [id number] : 1985 Acct:[id number] Age/Sex: 40 / M ADM Date: 08/16/25 Loc: [facility] Attending Dr: Malina Nevarez DO Ordering Physician: Malina Nevarez DO Date of Service: 08/16/25 Procedure(s): XR sacrum coccyx min 2V Accession Number(s): [id number] cc: Malina Nevarez DO Reason for Exam: acute b/l LBP > 2 wks with SI joint TTP EXAMINATION: XR SACRUM AND COCCYX CLINICAL INFORMATION: acute b/l LBP > 2 wks with SI joint TTP COMPARISON: None available. TECHNIQUE: 2 views of the sacrum and 2 views of the coccyx were obtained. FINDINGS: The SI joints are symmetrical without sclerosis or erosive changes. The sacrum is normal. Visualized coccyx is normal. Rest of the pelvic bones are normal. The soft tissues are normal. XR/XR sacrum coccyx min 2V IMPRESSION: Unremarkable sacrum and coccyx. Electronically signed by: Clyde Franco MD 08/16/2025 02:40 PM EST Dictated By: Clyde Franco MD Signed By: <Electronically signed by Clyde Franco MD in OV> 08/16/25 1440 DD/ 1400 TD/TT: 08/16/25 1418 Canteen Manager: MATTEO Procedure Note Donotuseinterpreter, Image - 08/16/[address] [address] XRay Report Signed Patient: Rigo HammMR#: [id number] : 1985Acct:[id number] Age/Sex: 40 / MADM Date: 08/16/25 [facility]: Malina Nevarez DO Ordering Physician: Malina Nevarez DO Date of Service: 08/16/25 Procedure(s): XR sacrum coccyx min 2V Accession Number(s): [id number] cc: Malina Nevarez DO Reason for Exam: acute b/l LBP > 2 wks with SI joint TTP EXAMINATION: XR SACRUM AND COCCYX CLINICAL INFORMATION: acute b/l LBP > 2 wks with SI joint TTP COMPARISON: None available. TECHNIQUE: 2 views of the sacrum and 2 views of the coccyx were obtained. FINDINGS: The SI joints are symmetrical without sclerosis or erosive changes. The sacrum is normal. Visualized coccyx is normal. Rest of the pelvic bones are normal. The soft tissues are normal. XR/XR sacrum coccyx min 2V IMPRESSION: Unremarkable sacrum and coccyx. Electronically signed by: Clyde Franco MD 08/16/2025 02:40 PM EST Dictated By: Clyde Franco MD Signed By: <Electronically signed by Clyde Franco MD in OV> 08/16/25 1440 DD/ 1400 TD/TT: 08/16/25 1418 Canteen Manager: MATTEO us Malina Nevarez DO IMG XR PROCEDURES Final Resu lt * XR Lumbar Spine 2-3 Views (08/16/2025 1:58 PM EST) Anatomical Region Laterality Modality Spine, L-spine Radiographic Merry ging 08/16/2025 1:58 PM EST Narrative 08/16/2025 2:38 PM EST [address] [address] XRay Report Signed Patient: Rigo Hamm MR#: [id number] : 1985 Acct:[id number] Age/Sex: 40 / M ADM Date: 08/16/25 Loc: HO.CX Attending Dr: Malina Nevarez DO Ordering Physician: Malina Nevarez DO Date of Service: 08/16/25 Procedure(s): XR lumbar spine 2-3V Accession Number(s): [id number] cc: Malina Nevarez DO Reason for Exam: acute b/l LBP > 2 wks with SI joint TTP EXAMINATION: XR LUMBOSACRAL SPINE CLINICAL INFORMATION: acute b/l LBP > 2 wks with SI joint TTP COMPARISON: Lumbar spine 03/10/2024. TECHNIQUE: Three views of the lumbosacral spine. FINDINGS: There is normal lumbar lordosis. The vertebral heights, alignment and disc heights are normal. No visible acute fracture, dislocation or subluxation seen. The soft tissues are normal. XR/XR lumbar spine 2-3V IMPRESSION: Unremarkable lumbar spine exam. No change from 03/10/2024. Electronically signed by: Clyde Franco MD 08/16/2025 02:35 PM EST Dictated By: Clyde Franco MD Signed By: <Electronically signed by Clyde Franco MD in OV> 08/16/25 1435 DD/ 1358 TD/TT: 08/16/25 1418 Canteen Manager: [facility] Procedure Note Donotuseinterpreter, Image - 08/16/[address] [address] XRay Report Signed Patient: Rigo HammMR#: [id number] : 1985Acct:[id number] Age/Sex: 40 / MADM Date: 08/16/25 Loc: HO.[facility]HCX Attending Dr: Malina Nevarez DO Ordering Physician: Malina Nevarez DO Date of Service: 08/16/25 Procedure(s): XR lumbar spine 2-3V Accession Number(s): [id number] cc: Malina Nevarez DO Reason for Exam: acute b/l LBP > 2 wks with SI joint TTP EXAMINATION: XR LUMBOSACRAL SPINE CLINICAL INFORMATION: acute b/l LBP > 2 wks with SI joint TTP COMPARISON: Lumbar spine 03/10/2024. TECHNIQUE: Three views of the lumbosacral spine. FINDINGS: There is normal lumbar lordosis. The vertebral heights, alignment and disc heights are normal. No visible acute fracture, dislocation or subluxation seen. The soft tissues are normal. XR/XR lumbar spine 2-3V IMPRESSION: Unremarkable lumbar spine exam. No change from 03/10/2024. Electronically signed by: Clyde Franco MD 08/16/2025 02:35 PM EST Dictated By: Clyde Franco MD Signed By: <Electronically signed by Clyde Franco MD in OV> 08/16/25 1435 DD/ 1358 TD/TT: 08/16/25 1418 Canteen Manager: MATTEO Malina Nevarez DO IMG XR PROCEDURES Final Resu lt * (ABNORMAL) POCT Urinalysis (08/16/2025 1:08 PM EST) Color, UA Yellow Clarity, UA Clear Glucose, UA Negative Bilirubin, UA Negative Ketones, UA Negative Spec Grav, UA 1.020 Blood, UA Positive(A) Negative, None Detected Comment:small pH, UA 6.5 Protein, UA Negative Urobilinogen, UA 0.2 Leukocytes, UA Negative Negative, Rare, Trace, 1+ (17), 2+ (35), 3+ (70), Trace (15) Nitrite, UA Negative Negative, None Detected QC Media Lot # [id number] Lot# Expiration Date 813 Urine (Urine, Random) 08/16/2025 1:08 PM EST Result [facility] Malina Nevarez DO POINT OF CARE TEST ENTER/HIGINIO T ORDERABLES Final Result documented in this encounter Visit Diagnoses Diagnosis Acute bilateral low back pain without sciatica- Primary Right groin pain Abdominal pain, right lower quadrant Major depression, recurrent, chronic (CMS/HCC) Encounter for immunization documented in this encounter Administered Medications Inactive Administered Medications - up to 3 most recent administrations Medication Order MAR Action Action Date Dose Rate Site ketorolac (Toradol) injection 30 mg 30 mg, Intramuscular, Once, On Sat08/16/25 at 1300, For 1 doseIndications:Acute bilateral low back pain without sciatica Given 08/16/2025 1:00 PM EST 30 mg L eft Deltoid documented in this encounter Additional Health Concerns Assessment Noted Time PHQ-9 Depression Total Score: 19 025 12:04 PM EST documented as of this encounter Care Teams Sales Driver Relationship Specialty Start Date End Date Malina Nevarez DO [address] [place] [id number] PCP - General Family Medicine 02/17/24 documented as of this encounter
--- OUTSIDE RECORDS SUMMARY | 2025-08-16 15:33 | XMS_ITS | Encounter Summary ---
Author Organization [employer] Address [address] [place] [address] Care Team Providers Care Social And Human Services Assistant Name Role Phone Malina Nevarez Primary Care Provider Encounter Details Date Type Department Care Team (Latest Contact Info) Description 08/16/2025 Travel Social History Tobacco Use Types Packs/Day [...] Description 11/12/2025 9:45 AM EDT Office Visit [facility] [address] [place] [address] Frandy Miranda MD [address] [place] [address] documented as of this encounter Visit Diagnoses Not on filedocumented in this encounter Additional Health Concerns Assessment Noted Time PHQ-9 Depression Total Score: 19 025 12:04 PM EST documented as of this encounter Care Teams Social And Human Services Assistant Relationship Specialty Start Date End Date Malina Nevarez DO [address] [place] [address] PCP - General Family Medicine 02/17/24 documented as of this encounter
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
--- OUTSIDE RECORDS SUMMARY | 2025-08-16 15:33 | XMS_ITS | Encounter Summary ---
Author Organization [employer] [facility] Address [address] [place] [address] Care Team Providers Care Rough And Trueing Machine Operator Name Role Phone Malina Nevarez DO Primary Care Provider + [phone] Leelee Francisco MD Primary Care Provider [phone] Malina Nevarez DO Primary Care Provider + [phone] Reason for Visit * Reason Onset Date Comments New Patient 04/18/2023 Encounter Details Date Type Department Care Team (Late st Contact Info) Description 04/18/2023 Telephone [facility] [address] [place], [place] [phone] Bobby Ortega MD [address] [place], [place] [phone] New Patient Social History Tobacco Use Types [...] been transfer over to wait list for [facility]. EFFECTIVE SINCE 02/15/2023 documented in this encounter Plan of Treatment Upcoming Encounters Date Type Department Care Team (Late st Contact Info) Description 11/12/2025 9:45 AM EDT Office Visit [facility] [address] [place] [address] Frandy Miranda MD [address] [place] [address] documented as of this encounter Visit Diagnoses Not on filedocumented in this encounter Care Teams Rough And Trueing Machine Operator Relationship Specialty Start Date End Date Malina Nevarez DO [facility] [place] [address] PCP - General Family Medicine 06/05/23 07/28/23 [place] [address] PCP - General Family Medicine 11/29/23 02/16/24 [place] [address] PCP - General Family Medicine 02/17/24 documented as of this encounter
[2025-08-17 08:12] LABS: CT PCR Urine NOT DETECTED (Not Detect.); NG PCR Urine NOT DETECTED (Not Detect.)
== END 2025-08-16 13:29 | disposition home or self-care (01) ==
LOC: HO.HHCX 13:28
PROVIDERS: PCP Family Medicine; Visit Provider Family Medicine
DX: Z20.2 Contact with and (suspected) exposure to infections with a predominantly sexual mode of transmission (principal); R10.31 Right lower quadrant pain; M54.50 Low back pain, unspecified
CPT/HCPCS: 72100; 72220; 87086; 87491; 87591

== ENCOUNTER → 2025-08-16 13:36 | Outpatient (BNV) | payer MEDICAID, SELFPAY | PROVIDERS: PCP Family Medicine; Visit Provider Radiology Diagnostic Radiology | DX: M54.50 Low back pain, unspecified (principal); M53.3 Sacrococcygeal disorders, not elsewhere classified | CPT/HCPCS: 72100; 72220 ==